=== PATIENT | female | born 1970 ===

== ENCOUNTER 2016-07-21 18:47 | Emergency (ER) | payer SELFPAY ==
[2016-07-21 19:02] VITALS: TEMP 97.2; O2SAT 100
[2016-07-21] MEDS ORDERED: Sodium Chloride 0.9% 1,000 ML IV STA (19:23)
--- NOTE | 2016-07-21 19:49 | ED PDOC ---
HPI: Hypertension/Hypotension Time Seen by Provider: 07/21/16 19:04 Chief Complaint (Nursing): High Blood Pressure Chief Complaint (Provider): High Blood Pressure History Per: Patient History/Exam Limitations: no limitations Onset/Duration Of Symptoms: Hrs (a few hours [employer]OCKST[employer]) Current Symptoms Are (Timing): Better Associated Symptoms: Dyspnea, Dizziness. denies: Chest Pain Severity: Moderate Additional Complaint(s): 46 year old female patient with a pertinent medical history of HTN presents to the ED with complaints of an elevated blood pressure that she noticed prior to arrival. 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 Her bending shed worker injected dye into her eye and she started to get shortness of breath and dizzy. She reports that she didn't take her BP medication after leaving her bending shed worker's office. She denies having chest pain. Her BP has started to resolve in the ED but her symptoms of shortness of breath and dizziness remain. PMD: Emely Benson Past Medical History Reviewed: Historical Data, Nursing Documentation, Vital Signs Vital Signs: Last Vital Signs Temp 97.2 F L 07/21/16 18:56 Pulse 78 07/21/16 18:56 Resp 18 07/21/16 18:56 BP 167/89 H 07/21/16 18:56 Pulse Ox 100 07/21/16 18:56 - Medical History PMH: Diabetes, HTN - Family History Family History: States: Unknown Family Hx - Social History Current smoker - smoking cessation education provided: No Alcohol: None Drugs: Denies - Immunization History Hx Tetanus Toxoid Vaccination: No Hx Influenza Vaccination: No Hx Pneumococcal Vaccination: No - Home Medications Home Medications: Ambulatory Orders Medication Instructions Recorded Patient Own Med [Patient Own Med] 1 tab PO DAILY 11/07/14 Aspirin [Ecotrin] 81 mg PO DAILY #0 tabec 11/08/14 Atorvastatin [Lipitor] 20 mg PO DAILY #0 tab 11/08/14 Lisinopril [Zestril] 10 mg PO DAILY #0 tab 11/08/14 Metoprolol Tartrate [Lopressor] 25 mg PO Q12 #0 tab 11/08/14 metFORMIN [glucOPHAGE] 500 mg PO BID #0 tab 11/08/14 Clindamycin [Cleocin] 300 mg PO BID #14 cap 11/22/15 Ibuprofen [Motrin] 600 mg PO Q6 #20 tab 11/22/15 oxyCODONE/Acetaminophen [Percocet 1 tab PO Q6 #10 tab 04/02/16 5/325 mg Tab] - Allergies Allergies/Adverse Reactions: Allergies Allergy/AdvReac Type Severity Reaction Status Date / Time No Known Allergies Allergy Verified 04/02/16 17:50 Review of Systems ROS Statement: Except As Marked, All Systems Reviewed And Found Negative Cardiovascular: Negative for: Chest Pain Respiratory: Positive for: Shortness of Breath Neurological: Positive for: Dizziness Physical Exam - Reviewed Nursing Documentation Reviewed: Yes Vital Signs Reviewed: Yes - Physical Exam Appears: Positive for: Well, Non-toxic, No Acute Distress Head Exam: Positive for: ATRAUMATIC, NORMOCEPHALIC Skin: Positive for: Normal Color, Warm, Dry Eye Exam: Positive for: Other (dilated pupils (from earlier procedure)) Cardiovascular/Chest: Positive for: Regular Rate, Rhythm, Chest Non Tender Respiratory: Positive for: Normal Breath Sounds. Negative for: Respiratory Distress Neurologic/Psych: Positive for: Alert, Oriented (3x) - Laboratory Results Result Diagrams: 07/21/16 19:47 07/21/16 19:47 - ECG O2 Sat by Pulse Oximetry: 100 (RA) Pulse Ox Interpretation: Normal Medical Decision Making Medical Decision Makin:04 Initial impression: 46 year old female patient with a reaction to injected dye. Initial plan: * BMP * troponin I * CBC with differential * IV NS 1,000ml IV 1,000mls/hr * reglan 10mg IVP once * threat monitoring analyst * reevaluation 2200 PT. is feeling much better, symptoms have resolved. Likely was experiencing a medication adverse reaction. Scribe Attestation: Documented by Christie Dietz, acting as a scribe for Blane Jolley MD. Provider Scribe Attestation: All medical record entries made by the Scribe were at my direction and personally dictated by me. I have reviewed the chart and agree that the record accurately reflects my personal performance of the history, physical exam, medical decision making, and the department course for this patient. I have also personally directed, reviewed, and agree with the discharge instructions and disposition. Disposition - Clinical Impression Clinical Impression: Hypertension - Disposition Referrals: [facility] [Outside] Disposition Time: 22:00 Condition: STABLE Instructions: Adverse Drug Reaction (ED), Hypertension (ED) Print Language: LIBYAN
[2016-07-21 20:32] LABS: BASO % 0.6 % (0.0-2.0); EOS # 0.1 K/uL (0.0-0.7); EOS % 1.2 % (0.0-4.0); HEMATOCRIT 42.1 % (34.0-47.0); LYMPH # 3.5 K/uL (1.0-4.3); LYMPH % 48.2 % (20.0-40.0); MEAN CELL VOLUME 96.9 fl (81.0-99.0); MEAN CORPUSCULAR HEMOGLOBIN 32.9 pg (27.0-31.0); MEAN PLATELET VOLUME 10.2 fl (7.2-11.7); MONO # 0.5 K/uL (0.0-0.8); MONO % 6.8 % (0.0-10.0); NEUT # 3.1 K/uL (1.8-7.0); NEUT % 43.2 % (50.0-75.0); NRBC % 0.1 % (0.0-0.0); RED CELL DISTRIBUTION WIDTH 13.3 % (11.5-14.5); WHITE BLOOD COUNT 7.2 K/uL (4.8-10.8)
[2016-07-21 20:42] VITALS: BP 158/82; PULSE 70; RESP 16
[2016-07-21 21:08] LABS: BLOOD UREA NITROGEN 13 mg/dl (7-17); CALCIUM 9.3 mg/dL (8.4-10.2); CARBON DIOXIDE 24 mmol/L (22-30); CHLORIDE 101 mmol/L (98-107); GFR AFRICAN-AMERICAN > 60; GLUCOSE,RANDOM 314 mg/dL (65-105); POTASSIUM 3.6 MMOL/L (3.6-5.0); SODIUM 132 mmol/l (132-148)
--- NOTE | 2016-07-22 13:19 | RAD ---
PROCEDURE: CHEST RADIOGRAPH, 1 VIEW HISTORY: Shortness of breath COMPARISON: 05/09/2012 FINDINGS: LUNGS: The lungs are clear. PLEURA: No pneumothorax or pleural fluid seen. CARDIOVASCULAR: Normal. OSSEOUS STRUCTURES: No significant abnormalities. VISUALIZED UPPER ABDOMEN: Normal. OTHER FINDINGS: None. IMPRESSION: No active pulmonary move disease.
== END 2016-07-21 22:09 | disposition home or self-care (01) ==
LOC: H.ER 18:47
DX: I10 Essential (primary) hypertension (principal); E11.9 Type 2 diabetes mellitus without complications; R42 Dizziness and giddiness; R06.02 Shortness of breath; Z79.84 Long term (current) use of oral hypoglycemic drugs

== ENCOUNTER 2017-05-04 18:08 | Observation (INO) | payer SELFPAY ==
[2017-05-04] MEDS ORDERED: Sodium Chloride 0.9% 500 ML IV STA (18:35)
--- NOTE | 2017-05-04 19:03 | ED PDOC ---
HPI: Chest Pain Time Seen by Provider: 05/04/17 18:29 Chief Complaint (Nursing): Chest Pain Chief Complaint (Provider): Chest Pain History Per: Patient, Family (son) History/Exam Limitations: no limitations Onset/Duration Of Symptoms: Days (x1) Current Symptoms Are (Timing): Still Present Additional Complaint(s): 47 year old female with previous medical history of diabetes, hypertension and hypercholesterolemia, who presents to the emergency department with a complaint of chest pain associated with shortness of breath, palpitations, anxiety and tingling sensation of lower extremities ongoing since 1529 today. Denied any nausea, vomiting, diarrhea, abdominal pain, suicidal or homicidal ideation. Son stated patient's blood pressure was high and symptoms began after receiving bad news earlier today. PMD: [facility] Past Medical History Reviewed: Historical Data, Nursing Documentation, Vital Signs Vital Signs: Last Vital Signs Temp 98.3 F 05/04/17 18:19 Pulse 87 05/04/17 18:19 Resp 18 05/04/17 18:19 BP 148/82 05/04/17 18:19 Pulse Ox 99 05/04/17 21:15 - Medical History PMH: Anxiety, Diabetes, HTN - Surgical History Surgical History: No Surg Hx - Family History Family History: States: Unknown Family Hx - Social History Current smoker - smoking cessation education provided: No Ex-Smoker (has not smoked in the last 12 months): No Alcohol: None Drugs: Denies - Immunization History Hx Tetanus Toxoid Vaccination: No Hx Influenza Vaccination: No Hx Pneumococcal Vaccination: No - Home Medications Home Medications: Ambulatory Orders Medication Instructions Recorded Patient Own Med [Patient Own Med] 1 tab PO DAILY 11/07/14 Aspirin [Ecotrin] 81 mg PO DAILY #0 tabec 11/08/14 Atorvastatin [Lipitor] 20 mg PO DAILY #0 tab 11/08/14 Lisinopril [Zestril] 10 mg PO DAILY #0 tab 11/08/14 Metoprolol Tartrate [Lopressor] 25 mg PO Q12 #0 tab 11/08/14 metFORMIN [glucOPHAGE] 500 mg PO BID #0 tab 11/08/14 Clindamycin [Cleocin] 300 mg PO BID #14 cap 11/22/15 Ibuprofen [Motrin] 600 mg PO Q6 #20 tab 11/22/15 oxyCODONE/Acetaminophen [Percocet 1 tab PO Q6 #10 tab 12/02/16 5/325 mg Tab] traMADol [Ultram] 50 mg PO Q8 #10 tab 02/25/17 valACYclovir [Valtrex] 1 gm PO Q8 #30 tab 02/25/17 - Allergies Allergies/Adverse Reactions: Allergies Allergy/AdvReac Type Severity Reaction Status Date / Time No Known Allergies Allergy Verified 05/04/17 18:18 Review of Systems ROS Statement: Except As Marked, All Systems Reviewed And Found Negative Cardiovascular: Positive for: Chest Pain, Palpitations Respiratory: Positive for: Shortness of Breath Gastrointestinal: Negative for: Nausea, Vomiting, Abdominal Pain, Diarrhea Musculoskeletal: Positive for: Neck Pain (right-sided), Other (lower extremities tingling sensation) Psych: Positive for: Anxiety. Negative for: Suicidal ideation (or homicidal ideation) Physical Exam - Reviewed Nursing Documentation Reviewed: Yes Vital Signs Reviewed: Yes - Physical Exam Appears: Positive for: Well, Non-toxic, No Acute Distress Eye Exam: Positive for: Normal appearance, EOMI, PERRL. Negative for: Nystagmus ENT: Positive for: Normal ENT Inspection, Pharynx Is (within normal limits). Negative for: Pharyngeal Erythema Neck: Positive for: Normal, Painless ROM, Supple. Negative for: Decreased ROM Cardiovascular/Chest: Positive for: Regular Rate, Rhythm, Chest Non Tender Respiratory: Positive for: Normal Breath Sounds. Negative for: Decreased Breath Sounds, Wheezing, Respiratory Distress Extremity: Positive for: Normal ROM (upper/lower), Capillary Refill (<2 seconds) . Negative for: Pedal Edema, Calf Tenderness Neurologic/Psych: Positive for: Alert (x3), Oriented - Laboratory Results Result Diagrams: 05/04/17 19:10 05/04/17 19:10 Interpretation Of Abn Labs: 3.4 k - ECG ECG: Positive for: Interpreted By Me, Viewed By Me O2 Sat by Pulse Oximetry: 99 (RA) Pulse Ox Interpretation: Normal - Radiology X-Ray: Interpreted by Me, Viewed By Me X-Ray Interpretation: No Acute Disease - Progress ED Course And Treament: 2144: Stable. AAOx3. Pain free. Spoke with Dr. Rich who will admit tele obs. Medical Decision Making Medical Decision Making: Initial Impression: Chest pain; Anxiety Initial Plan: * EKG * CMP * Troponin I * CBC * PTT * PT * CXR * Aspirin 325mg PO * NS 500ml IV per 100mls/hr ____ Time: 1910 --EKG: NSR ~ Scribe Attestation: Documented by Stephy Toure, acting as a scribe for Ganesh Boyce MD. Provider Scribe Attestation: All medical record entries made by the Scribe were at my direction and personally dictated by me. I have reviewed the chart and agree that the record accurately reflects my personal performance of the history, physical exam, medical decision making, and the department course for this patient. I have also personally directed, reviewed, and agree with the discharge instructions and disposition. Disposition - Clinical Impression Clinical Impression: Acute chest pain, Hypokalemia - Patient ED Disposition Is Patient to be Admitted: Yes Counseled Patient/Family Regarding: Studies Performed, Diagnosis - Disposition Disposition Time: 21:44 Condition: FAIR - Pt Status Changed To: Hospital Disposition Of: Observation - POA Present On Arrival: None Core Measure Indicators: Chest Pain
[2017-05-04 19:15] LABS: LYMPH % 41.5 % (20.0-40.0); MEAN CELL VOLUME 95.9 fl (81.0-99.0); MEAN CORPUSCULAR HEMOGLOBIN 32.8 pg (27.0-31.0); MEAN CORPUSCULAR HGB CONC 34.2 g/dL (33.0-37.0); MEAN PLATELET VOLUME 9.1 fl (7.2-11.7); NEUT % 49.3 % (50.0-75.0); RBC 3.97 Mil/uL (3.80-5.20); RED CELL DISTRIBUTION WIDTH 13.2 % (11.5-14.5); WHITE BLOOD COUNT 8.8 K/uL (4.8-10.8)
[2017-05-04 19:16] LABS: BASO # 0.1 K/uL (0.0-0.2); BASO % 0.6 % (0.0-2.0); EOS # 0.1 K/uL (0.0-0.7); EOS % 1.4 % (0.0-4.0); LYMPH # 3.6 K/uL (1.0-4.3); MONO # 0.6 K/uL (0.0-0.8); MONO % 7.2 % (0.0-10.0); NEUT # 4.3 K/uL (1.8-7.0); NRBC % 0.1 % (0.0-0.0)
[2017-05-04 19:35] LABS: ALB/GLOB RATIO 1.1 (1.0-2.1); ALT/SGPT 54 U/L (9-52); AST/SGOT 29 U/L (14-36); BLOOD UREA NITROGEN 11 mg/dl (7-17); CALCIUM 9.1 mg/dL (8.4-10.2); GFR AFRICAN-AMERICAN > 60; GFR NON-AFRICAN AMERICAN > 60
[2017-05-04 19:41] LABS: INR 1.1 (0.9-1.2); PARTIAL THROMBOPLASTIN TIME 30.2 Seconds (25.6-37.1)
[2017-05-04] MEDS ORDERED: Potassium Chloride 20 mEq ER Tab PO ONE ×2 (21:18→22:04)
--- NOTE | 2017-05-04 22:11 | CP.PCM.HP ---
History of Present Illness - History of Present Illness History of Present Illness: PCP: Emely Jaimes: [facility] Chief Complaint: left chest pain The patient was seen nd examined in the ED HPI: The Hx is obtained from the patient and her family. She is a 47 years old female with hx of Diabetes Mellitus and HTN who was last seen at the ED on 02/25/17with left mid back pain radiating anteriorly and to the epigastrium. She returns today with sudden unset of a sharp, burning pain at the epigastrium radiating laterally and to the mid left back following one dermatome. The pain began gradually but is increasing in intensity and worsens with palpation and with movement. It is associated with SOB and palpitation and anxiety. No nausea, vomits nor diaphoresis. 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 absent: Diplopia, Floaters, Sees Flashes Ears: absent: Decreased Hearing, Ear Discharge, Tinnitus Nose/Mouth/Throat: absent: Epistaxis, Nasal Congestion, Nasal Discharge, Sinus Pain, Sinus Pressure - Cardiovascular Cardiovascular: Chest Pain, Dyspnea, Palpitations. absent: Edema, Leg Edema - Respiratory Respiratory: Cough, Dyspnea, Pain on Inspiration. absent: Wheezing, Stridor - Gastrointestinal Gastrointestinal: Constipation, Nausea, Vomiting. absent: Diarrhea Additional comments: Epigastric pains - Genitourinary Genitourinary: absent: Dysuria, Flank Pain, Hematuria, Urinary Hesitance - Musculoskeletal Musculoskeletal: Back Pain Additional comments: Pain to both feet - Integumentary Integumentary: absent: Pruritus, Rash, Skin Ulcer, Sores, Striae, Swelling - Neurological Neurological: Burning Sensations, Tingling. absent: Confusion, Focal Weakness, Headaches - Psychiatric Psychiatric: Anxiety. absent: Depression, Panic Attacks - Endocrine Endocrine: absent: Palpitations, Polydipsia, Polyphagia, Polyuria - Hematologic/Lymphatic Hematologic: absent: Easy Bleeding, Easy Bruising Past Patient History - Infectious Disease Hx of Infectious Diseases: None - Past Medical History & Family History Past Medical History?: Yes - Past Social History Smoking Status: Never Smoked Chewing Tobacco Use: No Cigar Use: No Alcohol: None Drugs: Denies Home Situation {Lives}: With Family - CARDIAC Hx Hypercholesterolemia: Yes Hx Hypertension: Yes - PULMONARY Hx Respiratory Disorders: No - NEUROLOGICAL Hx Neurological Disorder: No - HEENT Hx HEENT Problems: No - RENAL Hx Chronic Kidney Disease: No - ENDOCRINE/METABOLIC Hx Diabetes Mellitus Type 2: Yes - INTEGUMENTARY Hx Dermatological Problems: No - MUSCULOSKELETAL/RHEUMATOLOGICAL Hx Falls: No - GASTROINTESTINAL Hx Gastrointestinal Disorders: No - GENITOURINARY/GYNECOLOGICAL Hx Genitourinary Disorders: No - PSYCHIATRIC Hx Anxiety: Yes Other/Comment: Surgery to the right eye for Hemorrhage in the eye. - SURGICAL HISTORY Hx Surgeries: Yes Other/Comment: Eye surgery - ANESTHESIA Hx Anesthesia: Yes Hx Anesthesia Reactions: No Meds Allergies/Adverse Reactions: Allergies Allergy/AdvReac Type Severity Reaction Status Date / Time No Known Allergies Allergy Verified 05/04/17 18:18 Physical Exam - Constitutional Appears: No Acute Distress - Head Exam Head Exam: ATRAUMATIC, NORMAL INSPECTION, NORMOCEPHALIC - Eye Exam Eye Exam: EOMI, Normal appearance Pupil Exam: NORMAL ACCOMODATION, PERRL - ENT Exam ENT Exam: Mucous Membranes Moist, Normal Exam, Normal External Ear Exam - Neck Exam Neck exam: Positive for: Full Rom, Normal Inspection. Negative for: Lymphadenopathy, Tenderness - Respiratory Exam Respiratory Exam: Clear to Auscultation Bilateral. absent: Rales, Rhonchi, Wheezes - Cardiovascular Exam Cardiovascular Exam: REGULAR RHYTHM, RRR, +S1. absent: Gallop, JVD - GI/Abdominal Exam GI & Abdominal Exam: Normal Bowel Sounds, Soft. absent: Mass, Organomegaly Additional comments: Soft, flat, Tender at the epigastrium and lower left ribcage to mid left back on palpation. - Rectal Exam Rectal Exam: Deferred - Extremities Exam Extremities exam: Positive for: full ROM, normal inspection. Negative for: calf tenderness, pedal edema - Back Exam Back exam: absent: rash noted Additional comments: Pain to the mid left back from spine radiating anteriorly and to the anterior lower chest wall, increasing on palpation and when the poatient rotates the trunk. - Neurological Exam Neurological exam: Alert, CN II-XII Intact, Oriented x3, Reflexes Normal - Psychiatric Exam Psychiatric exam: Normal Affect, Normal Mood - Skin Skin Exam: Dry, Intact, Normal Color, Warm Additional comments: No rash nor petechias Results - Vital Signs Recent Vital Signs: Last Vital Signs Temp 98.3 F 05/04/17 18:19 Pulse 87 05/04/17 18:19 Resp 18 05/04/17 18:19 BP 148/82 05/04/17 18:19 Pulse Ox 99 05/04/17 21:46 - Labs Result Diagrams: 05/04/17 19:10 05/04/17 19:10 Labs: Laboratory Results - last 24 hr 05/04/17 05/04/17 05/04/17 18:31 19:10 19:10 WBC 8.8 RBC 3.97 Hgb 13.0 Hct 38.1 MCV 95.9 D MCH 32.8 H MCHC 34.2 RDW 13.2 Plt Count 189 MPV 9.1 Neut % (Auto) 49.3 L Lymph % (Auto) 41.5 H [place] % (Auto) 7.2 Eos % (Auto) 1.4 Baso % (Auto) 0.6 Neut # 4.3 Lymph # 3.6 [place] # 0.6 Eos # 0.1 Baso # 0.1 PT INR APTT Sodium 139 Potassium 3.4 L Chloride 101 Carbon Dioxide 26 Anion Gap 15 BUN 11 Creatinine 0.4 L Est GFR ( Amer) > 60 Est GFR (Non-Af Amer) > 60 POC Glucose (mg/dL) 143 H Random Glucose 154 H Calcium 9.1 Total Bilirubin 0.3 AST 29 ALT 54 H D Alkaline Phosphatase 116 Troponin I 0.0240 Total Protein 7.4 Albumin 4.0 Globulin 3.5 Albumin/Globulin Ratio 1.1 05/04/17 19:10 WBC RBC Hgb Hct MCV MCH MCHC RDW Plt Count MPV Neut % (Auto) Lymph % (Auto) [place] % (Auto) Eos % (Auto) Baso % (Auto) Neut # Lymph # [place] # Eos # Baso # PT 12.0 INR 1.1 APTT 30.2 Sodium Potassium Chloride Carbon Dioxide Anion Gap BUN Creatinine Est GFR ( Amer) Est GFR (Non-Af Amer) POC Glucose (mg/dL) Random Glucose Calcium Total Bilirubin AST ALT Alkaline Phosphatase Troponin I Total Protein Albumin Globulin Albumin/Globulin Ratio - EKG Data EKG comments: NSR 87/min. No sign of ischemia - Imaging and Cardiology Chest x-ray Status: Image reviewed by me Additional comment: No infiltrate Assessment & Plan - Assessment and Plan (Free Text) Assessment: #. Left Epigastric and left back pain #. DM with Hyperglycemia #. HTN #. Hypokalemia Plan: 47 years old female with hx of Diabetes Mellitus and HTN who was last seen at the ED on 02/25/17 with left mid back pain radiating anteriorly and to the epigastrium. She returns today with sudden unset of a sharp, burning pain at the epigastrium radiating laterally and to the mid left back following the same dermatome. No nausea, vomits nor diaphoresis. #. Left Epigastric and left back pain most likely secondary to Herpes Zoster, r/ o ACS - Consult ID Dr David - Capsasin Cream apply to area of pain QID - Pain management - Serial Troponin - EKG - Lipid Panel #. DM with Hyperglycemia - Metformin - Regular insulin sliding scale according to Accucheck - HbA1c 11.8 on 03/19/17 #. HTN - Zestril - Follow Blood Pressures #. Hypokalemia - Repleted - KCL maintenance - Follow Electrolytes #. Stress Ulcer Prophylaxis with Pepcid #. DVT prophylaxis with Lovenox #. Code Status: Full - Date & Time Date: 05/04/17 Time: 22:10
[2017-05-05] MEDS: Potassium Chl 20 mEq in NS 1,000 ML IV SCH ×2 (00:49→12:06)
[2017-05-05 05:42] LABS: LDL CHOLESTEROL 93 mg/dL (0-129)
[2017-05-05 05:58] LABS: BLOOD UREA NITROGEN 6 mg/dl (7-17); CALCIUM 8.2 mg/dL (8.4-10.2); GFR AFRICAN-AMERICAN > 60; GFR NON-AFRICAN AMERICAN > 60; HDL CHOLESTEROL 35 MG/DL (30-70)
[2017-05-05] MEDS: Insulin Regular 100 units/ml SC SCH ×2 (08:08→12:10)
[2017-05-05] MEDS ORDERED: Enoxaparin 40 mg Syringe SC SCH (09:00)
--- NOTE | 2017-05-05 09:58 | CP.PCM.DIS ---
Provider - Provider Date of Admission: 05/04/17 21:45 Attending physician: Kyle Rich Time Spent in preparation of Discharge (in minutes): 20 Diagnosis - Discharge Diagnosis (1) Shingles Status: Acute Hospital Course - Lab Results Lab Results: Most Recent Lab Values WBC 8.8 K/uL (4.8-10.8) 05/04/17 19:10 RBC 3.97 Mil/uL (3.80-5.20) 05/04/17 19:10 Hgb 13.0 g/dL (12.0-16.0) 05/04/17 19:10 Hct 38.1 % (34.0-47.0) 05/04/17 19:10 MCV 95.9 fl (81.0-99.0) D 05/04/17 19:10 MCH 32.8 pg (27.0-31.0) H 05/04/17 19:10 MCHC 34.2 g/dL (33.0-37.0) 05/04/17 19:10 RDW 13.2 % (11.5-14.5) 05/04/17 19:10 Plt Count 189 K/uL (130-400) 05/04/17 19:10 MPV 9.1 fl (7.2-11.7) 05/04/17 19:10 Neut % (Auto) 49.3 % (50.0-75.0) L 05/04/17 19:10 Lymph % (Auto) 41.5 % (20.0-40.0) H 05/04/17 19:10 [place] % (Auto) 7.2 % (0.0-10.0) 05/04/17 19:10 Eos % (Auto) 1.4 % (0.0-4.0) 05/04/17 19:10 Baso % (Auto) 0.6 % (0.0-2.0) 05/04/17 19:10 Neut # 4.3 K/uL (1.8-7.0) 05/04/17 19:10 Lymph # 3.6 K/uL (1.0-4.3) 05/04/17 19:10 [place] # 0.6 K/uL (0.0-0.8) 05/04/17 19:10 Eos # 0.1 K/uL (0.0-0.7) 05/04/17 19:10 Baso # 0.1 K/uL (0.0-0.2) 05/04/17 19:10 PT 12.0 Seconds (9.8-13.1) 05/04/17 19:10 INR 1.1 (0.9-1.2) 05/04/17 19:10 APTT 30.2 Seconds (25.6-37.1) 05/04/17 19:10 Sodium 138 mmol/l (132-148) 05/05/17 05:00 Potassium 3.5 MMOL/L (3.6-5.0) L 05/05/17 05:00 Chloride 102 mmol/L (98-107) 05/05/17 05:00 Carbon Dioxide 29 mmol/L (22-30) 05/05/17 05:00 Anion Gap 11 (10-20) 05/05/17 05:00 BUN 6 mg/dl (7-17) L 05/05/17 05:00 Creatinine 0.4 mg/dl (0.7-1.2) L 05/05/17 05:00 Est GFR ( Amer) > 60 05/05/17 05:00 Est GFR (Non-Af Amer) > 60 05/05/17 05:00 POC Glucose (mg/dL) 90 mg/dL (65-110) 05/05/17 05:34 Random Glucose 109 mg/dL (65-105) H 05/05/17 05:00 Calcium 8.2 mg/dL (8.4-10.2) L 05/05/17 05:00 Total Bilirubin 0.3 mg/dl (0.2-1.3) 05/04/17 19:10 AST 29 U/L (14-36) 05/04/17 19:10 ALT 54 U/L (9-52) H D 05/04/17 19:10 Alkaline Phosphatase 116 U/L (38-126) 05/04/17 19:10 Troponin I 0.0150 ng/mL (0.00-0.120) 05/05/17 05:00 Total Protein 7.4 G/DL (6.3-8.2) 05/04/17 19:10 Albumin 4.0 g/dL (3.5-5.0) 05/04/17 19:10 Globulin 3.5 gm/dL (2.2-3.9) 05/04/17 19:10 Albumin/Globulin Ratio 1.1 (1.0-2.1) 05/04/17 19:10 Triglycerides 127 mg/DL (0-149) D 05/05/17 05:00 Cholesterol 139 mg/dL (0-199) 05/05/17 05:00 LDL Cholesterol Direct 93 mg/dL (0-129) 05/05/17 05:00 HDL Cholesterol 35 MG/DL (30-70) 05/05/17 05:00 - Hospital Course Hospital Course: 47 y/o female patient with PMHx of DM II; HTN; HLD; was admitted to the hospital for an onset of a sharp, burning pain at the epigastrium radiating laterally and to the mid left back following one dermatome. The pain began gradually but was increasing in intensity at the time of an admission. Patient was seen in the ED for similar symptoms on 02/25/17 with left mid back pain radiating anteriorly and to the epigastrium. During the hospital stay, her serial troponin levels were found to be normal. EKG showed no acute findings. Capsaicin cream showed improvement in her symptoms during the hospital stay. 1). 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 DM with Hyperglycemia - Metformin - HbA1c 11.8 on 03/19/17 3). HTN - Zestril - Follow Blood Pressures 4). HLD - Atorvastatin - Date & Time of H&P Date of H&P: 05/05/17 Time of H&P: 09:46 Discharge Exam - Head Exam Head Exam: ATRAUMATIC, NORMAL INSPECTION, NORMOCEPHALIC - Eye Exam Eye Exam: Normal appearance - ENT Exam ENT Exam: Normal Exam - Neck Exam Neck exam: Full Rom, Normal Inspection - Respiratory Exam Respiratory Exam: Clear to PA & Lateral, NORMAL BREATHING PATTERN, UNREMARKABLE - Cardiovascular Exam Cardiovascular Exam: REGULAR RHYTHM, +S1, +S2 - GI/Abdominal Exam GI & Abdominal Exam: Normal Bowel Sounds, Soft, Unremarkable - Rectal Exam Rectal Exam: Deferred - Extremities Exam Extremities exam: full ROM, normal capillary refill, normal inspection - Back Exam Back exam: FULL ROM, tenderness, vertebral tenderness - Neurological Exam Neurological exam: Alert, Oriented x3 - Psychiatric Exam Psychiatric exam: Normal Affect, Normal Mood - Skin Skin Exam: Intact, Normal Color, Warm Additional comments: Mild tenderness present radiating from epigastric region to posteriorly in a single dermatomal pattern. no skin breaks, vesicles or rashes appreciated Discharge Plan - Discharge Medications Prescriptions: Atorvastatin [Lipitor] 20 mg PO DAILY #30 tab Capsaicin [Trixaicin CREAM] 1 applic TOP QID PRN #1 tube PRN Reason: Other Famotidine [Pepcid] 20 mg PO DAILY #30 tab Gabapentin [Neurontin] 300 mg PO BID #60 cap Lisinopril [Zestril] 10 mg PO DAILY #30 tab metFORMIN [glucOPHAGE] 500 mg PO BID #60 tab - Follow Up Plan Condition: FAIR Disposition: HOME/ ROUTINE Instructions: Hypokalemia (DC) Referrals: [facility] [employer] [facility] [Outside]
--- NOTE | 2017-05-05 10:06 | RAD ---
HISTORY: dyspnea COMPARISON: 02/25/2017. FINDINGS: LUNGS: The lungs are clear. PLEURA: No significant pleural effusion identified, no pneumothorax apparent. CARDIOVASCULAR: Normal. OSSEOUS STRUCTURES: No significant abnormalities. VISUALIZED UPPER ABDOMEN: Normal. OTHER FINDINGS: None. IMPRESSION: No active pulmonary disease.
--- NOTE | 2017-05-05 10:39 | CARD ---
APPROVED REPORT EKG Measurement Heart [id number] MD [id number] <Conclusion> Normal sinus rhythm Normal ECG
[2017-05-05 12:01] VITALS: BP 121/76; PULSE 77; RESP 20; TEMP 97.5; O2SAT 95
== END 2017-05-05 12:50 | disposition home or self-care (01) ==
LOC: H.ER 18:08 → H.ERHOLD 21:45 → H.TEL 23:21
PROVIDERS: ADMIT Internal Medicine; ATTEND Internal Medicine
DX: R07.9 Chest pain, unspecified (principal); E11.65 Type 2 diabetes mellitus with hyperglycemia; E87.6 Hypokalemia; E78.5 Hyperlipidemia, unspecified; E78.00 Pure hypercholesterolemia, unspecified; I10 Essential (primary) hypertension; F41.9 Anxiety disorder, unspecified; M54.9 Dorsalgia, unspecified
CPT/HCPCS: 36415; 71045; 80048; 80053; 80061; 81025; 82948; 84484; 85025; 85610; 85730; 93005; 99285; G0378; J1650; J7040

== ENCOUNTER 2017-07-05 01:12 | Inpatient (IN) | payer SELFPAY ==
[2017-07-05] MEDS ORDERED: Sodium Chloride 0.9% 1,000 ML IV STA ×2 (01:40→10:24)
[2017-07-05 02:07] LABS: BASO # 0.1 K/uL (0.0-0.2); BASO % 0.8 % (0.0-2.0); EOS # 0.1 K/uL (0.0-0.7); EOS % 1.1 % (0.0-4.0); HEMOGLOBIN 13.9 g/dL (12.0-16.0); LYMPH # 3.6 K/uL (1.0-4.3); MEAN CELL VOLUME 96.1 fl (81.0-99.0); MEAN CORPUSCULAR HEMOGLOBIN 33.5 pg (27.0-31.0); MEAN CORPUSCULAR HGB CONC 34.9 g/dL (33.0-37.0); MEAN PLATELET VOLUME 9.6 fl (7.2-11.7); MONO # 0.6 K/uL (0.0-0.8); NEUT # 3.7 K/uL (1.8-7.0); NEUT % 46.1 % (50.0-75.0); NRBC % 0.1 % (0.0-0.0); RBC 4.14 Mil/uL (3.80-5.20); RED CELL DISTRIBUTION WIDTH 13.4 % (11.5-14.5); WHITE BLOOD COUNT 7.9 K/uL (4.8-10.8)
[2017-07-05] MEDS ORDERED: Morphine 4 MG/ML VIAL IVP ONE (02:21)
[2017-07-05 02:36] LABS: ALB/GLOB RATIO 1.1 (1.0-2.1); ALBUMIN 4.2 g/dL (3.5-5.0); ALT/SGPT 40 U/L (9-52); AST/SGOT 30 U/L (14-36); BLOOD UREA NITROGEN 13 mg/dl (7-17); CALCIUM 9.9 mg/dL (8.4-10.2); GFR AFRICAN-AMERICAN > 60; GFR NON-AFRICAN AMERICAN > 60; LIPASE 190 U/L (23-300)
[2017-07-05] MEDS ORDERED: Iohexol 240 (50 ml) PO ONE (02:49)
[2017-07-05] MEDS ORDERED: Morphine 4 MG/ML VIAL ONE (04:35)
[2017-07-05] MEDS ORDERED: Iohexol 240 (50 ml) ONE (04:36)
[2017-07-05] MEDS ORDERED: Morphine 4 MG/ML VIAL IVP STA (04:42)
--- NOTE | 2017-07-05 05:15 | ED PDOC ---
HPI: Abdomen Time Seen by Provider: 07/05/17 01:30 Chief Complaint (Nursing): Abdominal Pain Chief Complaint (Provider): Abdominal Pain History Per: Patient History/Exam Limitations: no limitations Onset/Duration Of Symptoms: Days (14 days ago) Current Symptoms Are (Timing): Still Present Location Of Pain/Discomfort: LUQ Additional Complaint(s): 47 yo female, accompanied by spouse, with a history of diabetes, presents to the ED complaining of left upper quadrant abdominal pain, onset of 14 days ago. Patient reports of watery diarrhea, nausea, and worsened abdominal pain over the past 3 days, prompting her ED visit, but denies any vomiting, fever, chills , or any urinary symptoms. Past Medical History Reviewed: Historical Data, Nursing Documentation, Vital Signs Vital Signs: Last Vital Signs Temp 97.8 F 07/05/17 01:27 Pulse 80 07/05/17 01:27 Resp 18 07/05/17 01:27 BP 174/85 H 07/05/17 01:27 Pulse Ox 99 07/05/17 05:19 - Medical History PMH: Anxiety, Diabetes, HTN, Hypercholesterolemia Denies: HIV, Chronic Kidney Disease - Surgical History Surgical History: No Surg Hx - Family History Family History: States: Unknown Family Hx - Living Arrangements Living Arrangements: With Family - Social History Current smoker - smoking cessation education provided: No Ex-Smoker (has not smoked in the last 12 months): No Alcohol: None Drugs: Denies - Immunization History Hx Tetanus Toxoid Vaccination: No Hx Influenza Vaccination: No Hx Pneumococcal Vaccination: No - Home Medications Home Medications: Ambulatory Orders Medication Instructions Recorded Glimepiride [amaRYL] 2 mg PO BID 05/04/17 MetFORMIN [glucoPHAGE] 1,000 mg PO BID 05/04/17 Aspirin [Ecotrin] 81 mg PO DAILY tabec 05/05/17 Atorvastatin [Lipitor] 20 mg PO DAILY #30 tab 05/05/17 Capsaicin [Trixaicin CREAM] 1 applic TOP QID PRN #1 tube 05/05/17 Famotidine [Pepcid] 20 mg PO DAILY #30 tab 05/05/17 Gabapentin [Neurontin] 300 mg PO BID #60 cap 05/05/17 Lisinopril [Zestril] 10 mg PO DAILY #30 tab 05/05/17 metFORMIN [glucOPHAGE] 500 mg PO BID #60 tab 05/05/17 - Allergies Allergies/Adverse Reactions: Allergies Allergy/AdvReac Type Severity Reaction Status Date / Time No Known Allergies Allergy Verified 05/04/17 18:18 Review of Systems ROS Statement: Except As Marked, All Systems Reviewed And Found Negative Constitutional: Negative for: Fever, Chills Gastrointestinal: Positive for: Nausea, Abdominal Pain, Diarrhea (watery). Negative for: Vomiting Genitourinary Female: Negative for: Dysuria, Frequency, Incontinence, Hematuria Physical Exam - Reviewed Nursing Documentation Reviewed: Yes Vital Signs Reviewed: Yes - Physical Exam Appears: Positive for: Well, Non-toxic, No Acute Distress Head Exam: Positive for: ATRAUMATIC, NORMAL INSPECTION, NORMOCEPHALIC Skin: Positive for: Normal Color, Warm, DRY Eye Exam: Positive for: EOMI, Normal appearance, PERRL ENT: Positive for: Normal ENT Inspection Neck: Positive for: Normal, Painless ROM Cardiovascular/Chest: Positive for: Regular Rate, Rhythm. Negative for: Murmur Respiratory: Positive for: Normal Breath Sounds. Negative for: Respiratory Distress Gastrointestinal/Abdominal: Positive for: Soft, Tenderness (left upper quadrant tenderness to palpation) Back: Positive for: Normal Inspection Extremity: Positive for: Normal ROM Neurologic/Psych: Positive for: Alert, Oriented - Laboratory Results Result Diagrams: 07/05/17 02:04 07/05/17 02:04 - ECG O2 Sat by Pulse Oximetry: 99 (RA) Pulse Ox Interpretation: Normal Medical Decision Making Medical Decision Making: Time: --01:39 Impression: --diverticulitis vs colitis vs kidney stone Plan: --CT ABD Pelvis PO and IV contrast --Iohexol 50ml PO --Toradol 30mg IVP --Morphine 4mg IVP x2 --IV fluids --Zofran 4mg IVP --Urinalysis Reassess [address] Sanchez pending crisis eval Scribe Attestation: Documented by Kasi Dolan acting as a scribe for Blane Jolley MD. Provider Attestation: All medical record entries made by the Scribe were at my direction and personally dictated by me. I have reviewed the chart and agree that the record accurately reflects my personal performance of the history, physical exam, medical decision making, and the department course for this patient. I have also personally directed, reviewed, and agree with the discharge instructions and disposition. Disposition - Clinical Impression Clinical Impression: Abdominal pain - Patient ED Disposition Is Patient to be Admitted: Transfer of Care - Disposition Disposition: Transfer of Care Disposition Time: 07:00 Condition: STABLE Forms: [employer] (Stateless) Patient Signed Over To: Chava Sanchez Handoff Comments: pending CT and reeval
[2017-07-05] MEDS ORDERED: Iohexol 300 100 ML IJ ONE (06:14)
[2017-07-05 06:56] LABS: SQUAMOUS EPITHIAL 3 /hpf (0-5); URINE BILIRUBIN NEGATIVE (NEGATIVE); URINE BLOOD NEGATIVE (NEGATIVE); URINE CLARITY SLIGHTY-CLOUDY (Clear); URINE COLOR YELLOW (YELLOW); URINE GLUCOSE (UA) >=500 mg/dL (Normal); URINE LEUKOCYTE ESTERASE NEG Leu/uL (Negative); URINE PROTEIN NEGATIVE (NEGATIVE); URINE UROBILINOGEN 0.2-1.0 mg/dL (0.2-1.0)
--- NOTE | 2017-07-05 07:16 | ED PDOC ---
- Laboratory Results Result Diagrams: 07/05/17 02:04 07/05/17 02:04 - ECG O2 Sat by Pulse Oximetry: 99 (RA) Pulse Ox Interpretation: Normal Medical Decision Making Medical Decision Making: Time: 7:10 Patient was signed out to me by DR. Jolley, pending CT abdomen. CT Abdomen: FINDINGS: Lower thorax: Bibasilar right mid lobe and lingular nonspecific infiltrates are present, consistent with atelectasis or pneumonia. Small hiatal hernia. ABDOMEN: Liver: Unremarkable. No mass. Gallbladder and bile ducts: Partially distended gallbladder with a large gallstone in the gallbladder fundus. There is gallbladder wall thickening and pericholecystic infiltration. Correlation with clinical data is recommended if acute on chronic cholecystitis is clinically suspected. Pancreas: Unremarkable. No mass. No ductal dilation. Spleen: Unremarkable. No splenomegaly. Adrenals: Unremarkable. No mass. Kidneys and ureters: Unremarkable. No solid mass. No hydronephrosis. Stomach and bowel: Diverticulosis. Large amount of stool in the colon. Correlation with patient's clinical history of constipation is recommended. No mucosal thickening. Appendix: Normal appendix. PELVIS: Bladder: Unremarkable. Reproductive: There is enhancing involuting left ovarian cyst measuring 2.6 x 1.8 cm. If clinically warranted, a pelvic ultrasound may be helpful for further assessment. There is IUD in the fundus of the uterus. ABDOMEN and PELVIS: Intraperitoneal space: Unremarkable. No free air. No significant fluid collection. Bones/joints: L5-S1 disc herniation No acute fracture. No dislocation. Soft tissues: Unremarkable. Vasculature: There is mild narrowing of celiac trunk seen on image 80 series 602. The aorta demonstrates calcified plaque and is mildly ectatic but normal in caliber. No abdominal aortic aneurysm. Lymph nodes: Unremarkable. No enlarged lymph nodes. IMPRESSION: 1. Partially distended gallbladder with a large gallstone in the gallbladder fundus. There is gallbladder wall thickening and pericholecystic infiltration. Correlation with clinical data is recommended if acute on chronic cholecystitis is clinically suspected. 2. There is enhancing involuting left ovarian cyst measuring 2.6 x 1.8 cm. If clinically warranted, a pelvic ultrasound may be helpful for further assessment. US Abdomen FINDINGS: LIVER: Measures 13.7 cm in length. Normal echogenicity of the liver parenchyma. No mass. No intrahepatic bile duct dilatation. GALLBLADDER: Extensive cholelithiasis distends gallbladder with trace cholecystic fluid noted. The wall does not appear grossly thickened however there is a positive sonographic Mukherjee sign and clinical correlation for cholecystitis is recommended. COMMON BILE DUCT: Measures 2.3 mm. No stones. No dilatation. PANCREAS: Not identified due to extensive overlying stomach or bowel gas. RIGHT KIDNEY: Measures 11.8 cm in length. Normal echogenicity. No calculus, mass, or hydronephrosis. AORTA: No aneurysmal dilatation. IVC: Unremarkable. OTHER FINDINGS: None . IMPRESSION: The gallbladder is distended with cholelithiasis and trace pericholecystic fluid is in question. Clinically correlate for potential cholecystitis in this patient with a positive sonographic Mukherjee sign. Normal CBD caliber. Pancreas completely obscured by overlying stomach or bowel gas. Time: 9:[address] Rosenberg and residential appraiser; patient diagnosed with acute cholecystitis. Dr Rosenberg will admit to her service. Disposition Counseled Patient/Family Regarding: Studies Performed, Diagnosis - Clinical Impression Clinical Impression: Abdominal pain, Acute calculous cholecystitis - POA Present On Arrival: None - Disposition Disposition: Admitted as In-Patient Disposition Time: 10:36 Condition: FAIR
--- NOTE | 2017-07-05 07:35 | CT ---
EXAM: CT Abdomen and Pelvis With Intravenous Contrast CLINICAL HISTORY: 47 years old, female; Pain; Abdominal pain; Flank; Left upper quadrant (luq); Additional info: Luq pain TECHNIQUE: Axial computed tomography images of the abdomen and pelvis with intravenous contrast. All CT scans at this facility use one or more dose reduction techniques, viz.: automated exposure control; ma/kV adjustment per patient size (including targeted exams where dose is matched to indication; i.e. head); or iterative reconstruction technique. 643 images are submitted. Oral contrast was administered. Coronal and sagittal reformatted images were created and reviewed. CONTRAST: 95 mL of omnipaque 300 administered intravenously. COMPARISON: No relevant prior studies available. FINDINGS: Lower thorax: Bibasilar right mid lobe and lingular nonspecific infiltrates are present, consistent with atelectasis or pneumonia. Small hiatal hernia. ABDOMEN: Liver: Unremarkable. No mass. Gallbladder and bile ducts: Partially distended gallbladder with a large gallstone in the gallbladder fundus. There is gallbladder wall thickening and pericholecystic infiltration. Correlation with clinical data is recommended if acute on chronic cholecystitis is clinically suspected. Pancreas: Unremarkable. No mass. No ductal dilation. Spleen: Unremarkable. No splenomegaly. Adrenals: Unremarkable. No mass. Kidneys and ureters: Unremarkable. No solid mass. No hydronephrosis. Stomach and bowel: Diverticulosis. Large amount of stool in the colon. Correlation with patient's clinical history of constipation is recommended. No mucosal thickening. Appendix: Normal appendix. PELVIS: Bladder: Unremarkable. Reproductive: There is enhancing involuting left ovarian cyst measuring 2.6 x 1.8 cm. If clinically warranted, a pelvic ultrasound may be helpful for further assessment. There is IUD in the fundus of the uterus. ABDOMEN and PELVIS: Intraperitoneal space: Unremarkable. No free air. No significant fluid collection. Bones/joints: L5-S1 disc herniation No acute fracture. No dislocation. Soft tissues: Unremarkable. Vasculature: There is mild narrowing of celiac trunk seen on image 80 series 602. The aorta demonstrates calcified plaque and is mildly ectatic but normal in caliber. No abdominal aortic aneurysm. Lymph nodes: Unremarkable. No enlarged lymph nodes. IMPRESSION: 1. Partially distended gallbladder with a large gallstone in the gallbladder fundus. There is gallbladder wall thickening and pericholecystic infiltration. Correlation with clinical data is recommended if acute on chronic cholecystitis is clinically suspected. 2. There is enhancing involuting left ovarian cyst measuring 2.6 x 1.8 cm. If clinically warranted, a pelvic ultrasound may be helpful for further assessment.
--- NOTE | 2017-07-05 10:07 | US ---
HISTORY: LUQ pain CT abdomen possibel edson COMPARISON: None. TECHNIQUE: Sonographic evaluation of the right upper quadrant of the abdomen. FINDINGS: LIVER: Measures 13.7 cm in length. Normal echogenicity of the liver parenchyma. No mass. No intrahepatic bile duct dilatation. GALLBLADDER: Extensive cholelithiasis distends gallbladder with trace cholecystic fluid noted. The wall does not appear grossly thickened however there is a positive sonographic Mukherjee sign and clinical correlation for cholecystitis is recommended. COMMON BILE DUCT: Measures 2.3 mm. No stones. No dilatation. PANCREAS: Not identified due to extensive overlying stomach or bowel gas. RIGHT KIDNEY: Measures 11.8 cm in length. Normal echogenicity. No calculus, mass, or hydronephrosis. AORTA: No aneurysmal dilatation. IVC: Unremarkable. OTHER FINDINGS: None . IMPRESSION: The gallbladder is distended with cholelithiasis and trace pericholecystic fluid is in question. Clinically correlate for potential cholecystitis in this patient with a positive sonographic Mukherjee sign. Normal CBD caliber. Pancreas completely obscured by overlying stomach or bowel gas.
[2017-07-05] MEDS ORDERED: Piperacillin/Tazobact 3.375 GM in Sodium Chloride 0.9% 100 ML IVPB STA (10:24)
--- NOTE | 2017-07-05 10:53 | CP.PCM.HP ---
History of Present Illness - History of Present Illness History of Present Illness: H&P FOR DR CHET 47F presents to hospital with epigastric pain that she states began 4 weeks ago. Pain has been on and off but yesterday it grew in intensity causing her to come to hospital. She states the pain is associated with food, especially fatty/ oily food. She admits to feels nauseous and having a bout of emesis yesterday. She also reports a three day history of diarrhea. She denies fevers and chills. PMH: DM, HTN, HLD PSH: Denies Social: denies tobacco, alcohol and illicit drugs Allergies: NKDA Present on Admission - Present on Admission Any Indicators Present on Admission: Yes History of Uncontrolled Diabetes: Yes Past Patient History - Infectious Disease Hx of Infectious Diseases: None - Past Medical History & Family History Past Medical History?: Yes - Past Social History Smoking Status: Never Smoked - CARDIAC Hx Hypercholesterolemia: Yes Hx Hypertension: Yes - PULMONARY Hx Respiratory Disorders: No - NEUROLOGICAL Hx Neurological Disorder: No - HEENT Hx HEENT Problems: No - RENAL Hx Chronic Kidney Disease: No - ENDOCRINE/METABOLIC Hx Endocrine Disorders: Yes Hx Diabetes Mellitus Type 2: Yes - HEMATOLOGICAL/ONCOLOGICAL Hx Human Immunodeficiency Virus (HIV): No - INTEGUMENTARY Hx Dermatological Problems: No - MUSCULOSKELETAL/RHEUMATOLOGICAL Hx Musculoskeletal Disorders: No Hx Falls: No - GASTROINTESTINAL Hx Gastrointestinal Disorders: No - GENITOURINARY/GYNECOLOGICAL Hx Genitourinary Disorders: No - PSYCHIATRIC Hx Anxiety: Yes Hx Substance Use: No - SURGICAL HISTORY Hx Surgeries: Yes Hx Eye Surgery: Yes Other/Comment: Eye surgery - ANESTHESIA Hx Anesthesia: Yes Hx Anesthesia Reactions: No Meds Allergies/Adverse Reactions: Allergies Allergy/AdvReac Type Severity Reaction Status Date / Time No Known Allergies Allergy Verified 05/04/17 18:18 Physical Exam - Constitutional Additional comments: Very comfortable, teary-eyed - Head Exam Head Exam: ATRAUMATIC - Eye Exam Eye Exam: EOMI, PERRL - ENT Exam ENT Exam: Mucous Membranes Moist - Respiratory Exam Respiratory Exam: Clear to Auscultation Bilateral, NORMAL BREATHING PATTERN - Cardiovascular Exam Cardiovascular Exam: REGULAR RHYTHM, +S1, +S2 - GI/Abdominal Exam GI & Abdominal Exam: Soft, Tenderness (moderate to severely tender in RUQ/LUQ, positive murphys sign). absent: Distended, Firm, Guarding, Rebound, Rigid - Neurological Exam Neurological exam: Alert, Oriented x3 - Psychiatric Exam Additional comments: tearful- due to pain - Skin Skin Exam: Dry, Intact, Normal Color, Warm Results - Vital Signs Recent Vital Signs: Last Vital Signs Temp 97.8 F 07/05/17 01:27 Pulse 80 07/05/17 01:27 Resp 18 07/05/17 01:27 BP 174/85 H 07/05/17 01:27 Pulse Ox 99 07/05/17 10:29 - Labs Result Diagrams: 07/05/17 02:04 07/05/17 02:04 Labs: Laboratory Results - last 24 hr 07/05/17 07/05/17 07/05/17 02:04 02:04 06:28 WBC 7.9 RBC 4.14 Hgb 13.9 Hct 39.8 MCV 96.1 MCH 33.5 H MCHC 34.9 RDW 13.4 Plt Count 192 MPV 9.6 Neut % (Auto) 46.1 L Lymph % (Auto) 45.0 H [place] % (Auto) 7.0 Eos % (Auto) 1.1 Baso % (Auto) 0.8 Neut # (Auto) 3.7 Lymph # (Auto) 3.6 [place] # (Auto) 0.6 Eos # (Auto) 0.1 Baso # (Auto) 0.1 Sodium 138 Potassium 3.9 Chloride 100 Carbon Dioxide 27 Anion Gap 15 BUN 13 Creatinine 0.4 L Est GFR ( Amer) > 60 Est GFR (Non-Af Amer) > 60 Random Glucose 308 H Calcium 9.9 Total Bilirubin 0.6 AST 30 ALT 40 Alkaline Phosphatase 155 H D Total Protein 8.0 Albumin 4.2 Globulin 3.9 Albumin/Globulin Ratio 1.1 Lipase 190 Urine Color Yellow Urine Clarity Slighty-cloudy Urine pH 6.0 Ur Specific [place] 1.036 H Urine Protein Negative Urine Glucose (UA) >=500 Urine Ketones Trace Urine Blood Negative Urine Nitrate Negative Urine Bilirubin Negative Urine Urobilinogen 0.2-1.0 Ur Leukocyte Esterase Neg Urine RBC (Auto) 3 Urine Microscopic WBC 1 Ur Squamous Epith Cells 3 Assessment & Plan - Assessment and Plan (Free Text) Assessment: 47F with abdominal pain likely 2/[address]: Partially distended GB, large stone, GBW thickening, pericholecystic fluid, left involuted ovarian cyst US: GB distended, GB stone, trace fluid, positive murphys sign Plan: - Admit to service - Pain control, Abx - Fluid resuscitation - Consented and scheduled for OR Discussed with Dr. Chet Davis, PGY2
[2017-07-05] MEDS ORDERED: HYDROmorphone 1 mg/ml ISec IVP PRN (11:01)
[2017-07-05] MEDS ORDERED: Sodium Chloride 0.9% 1,000 ML IV SCH (11:15)
[2017-07-05] MEDS ORDERED: Propofol 10 mg/ml Inj (20 ML) ONE (11:45)
[2017-07-05 11:46] LABS: INR 1.1 (0.9-1.2); PARTIAL THROMBOPLASTIN TIME 31.8 Seconds (25.6-37.1); PROTHROMBIN TIME 11.8 Seconds (9.8-13.1)
[2017-07-05] MEDS ORDERED: Rocuronium 10 mg/ml (5 ml) ONE (11:46)
[2017-07-05] MEDS ORDERED: Lidocaine 4% (Laryng-O-Jet) Kit MM ONE (11:46)
[2017-07-05] MEDS ORDERED: Midazolam 2 MG/2 ML VIAL ONE (11:46)
[2017-07-05] MEDS ORDERED: Succinylcholine 200 mg/10 ml Inj IV ONE (11:46)
[2017-07-05] MEDS ORDERED: Lactated Ringer's 1,000 ML IV ONE ×2 (12:00→13:10)
[2017-07-05] MEDS ORDERED: Neostigmine 1:1000 (1 mg/ml) Inj ONE (12:07)
[2017-07-05] MEDS ORDERED: Piperacillin/Tazobact 3.375 gm Inj IVPB ONE (12:15)
[2017-07-05] MEDS ORDERED: ePHEDrine 50 mg/ml Inj ONE (12:43)
[2017-07-05] MEDS ORDERED: Dexamethasone 4 mg/1 ml ONE ×2 (12:47→13:32)
[2017-07-05] MEDS ORDERED: HYDROmorphone 0.5 mg/0.5 ml ISec IVP PRN (14:08)
--- NOTE | 2017-07-05 14:12 | PCM.SURG1 ---
Surgeon's Initial Post Op Note - Surgeon's Notes Surgeon: Chet Per Diem Rn: RHODA Davis, WING Butt Pre-Operative Diagnosis: Acute cholecystitis Operative Findings: Inflamed gallbladder, gallstones Post-Operative Diagnosis: Acute cholecystitis Operation Performed: Laparoscopic cholecystectomy Specimen/Specimens Removed: Gallbladder Estimated Blood Loss: EBL {In ML}: 20 Date of Surgery/Procedure: 07/05/17 Time of Surgery/Procedure: 12:30
[2017-07-05] MEDS ORDERED: Dextrose 50% SYRINGE Inj (50 ml) IV PRN (15:06)
[2017-07-05] MEDS ORDERED: Glucagon Recombinant 1 mg Inj IM PRN (15:06)
[2017-07-05 16:34] VITALS: RESP 20
[2017-07-05] MEDS: Insulin Regular 100 units/ml SC SCH ×2 (18:08→22:32)
[2017-07-05] MEDS: Lactated Ringer's 1,000 ML IV SCH (21:18)
[2017-07-06] MEDS: Lactated Ringer's 1,000 ML IV SCH (07:00)
--- NOTE | 2017-07-06 07:46 | CP.PCM.DIS ---
Provider - Provider Date of Admission: 07/05/17 10:36 Attending physician: Geraldo Rosenberg MD Time Spent in preparation of Discharge (in minutes): 40 Hospital Course - Lab Results Lab Results: Most Recent Lab Values WBC 7.9 K/uL (4.8-10.8) 07/05/17 02:04 RBC 4.14 Mil/uL (3.80-5.20) 07/05/17 02:04 Hgb 13.9 g/dL (12.0-16.0) 07/05/17 02:04 Hct 39.8 % (34.0-47.0) 07/05/17 02:04 MCV 96.1 fl (81.0-99.0) 07/05/17 02:04 MCH 33.5 pg (27.0-31.0) H 07/05/17 02:04 MCHC 34.9 g/dL (33.0-37.0) 07/05/17 02:04 RDW 13.4 % (11.5-14.5) 07/05/17 02:04 Plt Count 192 K/uL (130-400) 07/05/17 02:04 MPV 9.6 fl (7.2-11.7) 07/05/17 02:04 Neut % (Auto) 46.1 % (50.0-75.0) L 07/05/17 02:04 Lymph % (Auto) 45.0 % (20.0-40.0) H 07/05/17 02:04 [place] % (Auto) 7.0 % (0.0-10.0) 07/05/17 02:04 Eos % (Auto) 1.1 % (0.0-4.0) 07/05/17 02:04 Baso % (Auto) 0.8 % (0.0-2.0) 07/05/17 02:04 Neut # (Auto) 3.7 K/uL (1.8-7.0) 07/05/17 02:04 Lymph # (Auto) 3.6 K/uL (1.0-4.3) 07/05/17 02:04 [place] # (Auto) 0.6 K/uL (0.0-0.8) 07/05/17 02:04 Eos # (Auto) 0.1 K/uL (0.0-0.7) 07/05/17 02:04 Baso # (Auto) 0.1 K/uL (0.0-0.2) 07/05/17 02:04 PT 11.8 Seconds (9.8-13.1) 07/05/17 11:26 INR 1.1 (0.9-1.2) 07/05/17 11:26 APTT 31.8 Seconds (25.6-37.1) 07/05/17 11:26 Sodium 138 mmol/l (132-148) 07/05/17 02:04 Potassium 3.9 MMOL/L (3.6-5.0) 07/05/17 02:04 Chloride 100 mmol/L (98-107) 07/05/17 02:04 Carbon Dioxide 27 mmol/L (22-30) 07/05/17 02:04 Anion Gap 15 (10-20) 07/05/17 02:04 BUN 13 mg/dl (7-17) 07/05/17 02:04 Creatinine 0.4 mg/dl (0.7-1.2) L 07/05/17 02:04 Est GFR ( Amer) > 60 07/05/17 02:04 Est GFR (Non-Af Amer) > 60 07/05/17 02:04 POC Glucose (mg/dL) 197 mg/dL (65-110) H 07/06/17 05:44 Random Glucose 308 mg/dL (65-105) H 07/05/17 02:04 Calcium 9.9 mg/dL (8.4-10.2) 07/05/17 02:04 Total Bilirubin 0.6 mg/dl (0.2-1.3) 07/05/17 02:04 AST 30 U/L (14-36) 07/05/17 02:04 ALT 40 U/L (9-52) 07/05/17 02:04 Alkaline Phosphatase 155 U/L (38-126) H D 07/05/17 02:04 Total Protein 8.0 G/DL (6.3-8.2) 07/05/17 02:04 Albumin 4.2 g/dL (3.5-5.0) 07/05/17 02:04 Globulin 3.9 gm/dL (2.2-3.9) 07/05/17 02:04 Albumin/Globulin Ratio 1.1 (1.0-2.1) 07/05/17 02:04 Lipase 190 U/L (23-300) 07/05/17 02:04 Urine Color Yellow (YELLOW) 07/05/17 06:28 Urine Clarity Slighty-cloudy (Clear) 07/05/17 06:28 Urine pH 6.0 (5.0-8.0) 07/05/17 06:28 Ur Specific [place] 1.036 (1.003-1.030) H 07/05/17 06:28 Urine Protein Negative mg/dL (NEGATIVE) 07/05/17 06:28 Urine Glucose (UA) >=500 mg/dL (Normal) 07/05/17:28 Urine Ketones Trace mg/dL (NEGATIVE) 07/05/17 06:28 Urine Blood Negative (NEGATIVE) 07/05/17 06:28 Urine Nitrate Negative (NEGATIVE) 07/05/17:28 Urine Bilirubin Negative (NEGATIVE) 07/05/17 06:28 Urine Urobilinogen 0.2-1.0 mg/dL (0.2-1.0) 07/05/17 06:28 Ur Leukocyte Esterase Neg Hien/uL (Negative) 07/05/17 06:28 Urine RBC (Auto) 3 /hpf (0-3) 07/05/17 06:28 Urine Microscopic WBC 1 /hpf (0-5) 07/05/17 06:28 Ur Squamous Epith Cells 3 /hpf (0-5) 07/05/17 06:28 - Hospital Course Hospital Course: 47F presents to hospital with epigastric pain that she states began 4 weeks ago. Pain has been on and off but yesterday it grew in intensity causing her to come to hospital. She states the pain is associated with food, especially fatty/ oily food. She admits to feels nauseous and having a bout of emesis yesterday. She also reports a three day history of diarrhea. She denies fevers and chills. PMH: DM, HTN, HLD PSH: Denies Social: denies tobacco, alcohol and illicit drugs Allergies: NKDA 47F with abdominal pain likely 2/[address]: Partially distended GB, large stone, GBW thickening, pericholecystic fluid, left involuted ovarian cyst US: GB distended, GB stone, trace fluid, positive murphys sign Patient underwent a laparoscopic cholecystectomy on 07/05/17 Patient tolerated procedure well. Post op care was uneventful. Pain controlled. Tolerating diet. Patient ready to be discharged. Discharge Exam - Head Exam Head Exam: ATRAUMATIC - Respiratory Exam Respiratory Exam: Clear to PA & Lateral, NORMAL BREATHING PATTERN - Cardiovascular Exam Cardiovascular Exam: REGULAR RHYTHM, +S1, +S2 - GI/Abdominal Exam GI & Abdominal Exam: Soft, Tenderness (mildly tender to palpation). absent: Distended, Firm, Guarding, Rebound, Rigid Additional comments: incisions are clean dry intact - Neurological Exam Neurological exam: Alert, Oriented x3 - Psychiatric Exam Psychiatric exam: Normal Affect, Normal Mood - Skin Skin Exam: Dry, Intact, Normal Color, Warm Discharge Plan - Follow Up Plan Condition: FAIR Disposition: HOME/ ROUTINE
[2017-07-06 07:53] LABS: BASO % 0.1 % (0.0-2.0); EOS % 0.3 % (0.0-4.0); HEMOGLOBIN 11.7 g/dL (12.0-16.0); LYMPH # 1.9 K/uL (1.0-4.3); LYMPH % 21.8 % (20.0-40.0); MEAN CELL VOLUME 96.7 fl (81.0-99.0); MEAN CORPUSCULAR HEMOGLOBIN 34.1 pg (27.0-31.0); MEAN CORPUSCULAR HGB CONC 35.2 g/dL (33.0-37.0); MONO # 0.6 K/uL (0.0-0.8); MONO % 7.3 % (0.0-10.0); NEUT # 6.1 K/uL (1.8-7.0); NEUT % 70.5 % (50.0-75.0); NRBC % 0.1 % (0.0-0.0); RBC 3.43 Mil/uL (3.80-5.20); RED CELL DISTRIBUTION WIDTH 13.3 % (11.5-14.5); WHITE BLOOD COUNT 8.6 K/uL (4.8-10.8)
[2017-07-06 08:10] VITALS: BP 116/71; PULSE 71; TEMP 99.3; O2SAT 96
[2017-07-06 08:10] LABS: ALBUMIN 3.1 g/dL (3.5-5.0); ALT/SGPT 78 U/L (9-52); AST/SGOT 82 U/L (14-36); BLOOD UREA NITROGEN 7 mg/dl (7-17); CALCIUM 7.9 mg/dL (8.4-10.2); GFR AFRICAN-AMERICAN > 60; GFR NON-AFRICAN AMERICAN > 60
[2017-07-06] MEDS: Insulin Regular 100 units/ml SC SCH ×2 (08:25→11:06)
[2017-07-06] MEDS ORDERED: Oxycodone/Acetaminophen 5/325 mg Tab PO PRN (11:03)
--- NOTE | 2017-07-07 15:19 | OP ---
PROCEDURE DATE: 07/05/2017 SURGEON: Geraldo Rosenberg MD [employer] OPERATOR: Susan. ANESTHESIA: General. PREOPERATIVE DIAGNOSIS: Acute cholecystitis. POSTOPERATIVE DIAGNOSIS: Acute cholecystitis. PROCEDURE: Laparoscopic cholecystectomy. DESCRIPTION OF OPERATION: With the patient in the supine position under adequate general anesthesia, the abdomen was prepped and draped in the usual sterile manner. Veress needle puncture was performed at the umbilicus with insufflation to 15 cm water pressure of CO2 and a 10-mm laparoscopic trocar was inserted via an infraumbilical incision. Under direct vision, additional trocars were inserted in the epigastrium and right costal margin. The gallbladder was visualized. There was noted to be marked adhesion of the omentum to the liver edge adjacent to and surrounding the gallbladder and this was taken down sharply and with cautery to visualize the gallbladder. The gallbladder was softly distended, but with adherence of the area of the pylorus and omentum consistent with recent inflammation. The gallbladder fundus was grasped and elevated and the infundibular area was exposed gently taking down the adhesions. There was noted to be a moderately large stone impacted in the body of the gallbladder just above the area of the infundibulum. The infundibulum was grasped and retracted laterally and the cystic duct was identified. The cystic duct was cleared down towards the common bile duct and the cystic duct was then triply clipped and divided. The cystic artery was similarly identified and dissected and the cystic artery was triply clipped and divided. The gallbladder was dissected free of the liver bed using electrocautery. Thickening of the liver bed was noted consistent with acute inflammation. The liver bed was inspected for hemostasis and the dissection was completed. The gallbladder was placed in a specimen retrieval bag and removed via the umbilical port site. The right upper quadrant was irrigated and suctioned. The pneumoperitoneum was released and the trocars were removed. The umbilical port site was closed with [id number] fascial sutures of 0 Vicryl. All incisions were closed with 4-0 Monocryl subcuticular sutures and Steri-Strips. Dry sterile dressings were applied. The patient tolerated the procedure well and transferred to the recovery room in stable condition. Estimated blood loss for the procedure was 20 mL. Geraldo Rosenberg MD [facility] # [id number] MARV[place]
== END 2017-07-06 12:32 | disposition home or self-care (01) | DRG 494 ==
LOC: H.ER 01:12 → H.ERHOLD 10:36 → H.MEDSURG1 15:22
PROVIDERS: ADMIT Specialist; ATTEND Specialist
PROC: 0FT44ZZ Resection of Gallbladder, Percutaneous Endoscopic Approach (ICD-10-PCS; principal; 2017-07-05 12:00)
DX: K80.00 Calculus of gallbladder with acute cholecystitis without obstruction (principal); E11.9 Type 2 diabetes mellitus without complications; F41.9 Anxiety disorder, unspecified; I10 Essential (primary) hypertension; E78.00 Pure hypercholesterolemia, unspecified; N83.202 Unspecified ovarian cyst, left side; E78.5 Hyperlipidemia, unspecified

== ENCOUNTER 2018-03-05 08:49 | Emergency (ER) | payer SELFPAY ==
[2018-03-05 09:22] VITALS: BP 96/64; PULSE 86; RESP 16; TEMP 97.1; O2SAT 98
[2018-03-05] MEDS ORDERED: Sodium Chloride 0.9% 1,000 ML IV STA (09:29)
[2018-03-05 09:45] LABS: BASO % 0.5 % (0.0-2.0); EOS # 0.2 K/uL (0.0-0.7); EOS % 2.1 % (0.0-4.0); HEMOGLOBIN 14.9 g/dL (12.0-16.0); LYMPH % 22.6 % (20.0-40.0); MEAN CELL VOLUME 97.9 fl (81.0-99.0); MEAN CORPUSCULAR HEMOGLOBIN 33.5 pg (27.0-31.0); MEAN CORPUSCULAR HGB CONC 34.2 g/dL (33.0-37.0); MEAN PLATELET VOLUME 9.1 fl (7.2-11.7); MONO # 0.6 K/uL (0.0-0.8); MONO % 7.1 % (0.0-10.0); NEUT % 67.7 % (50.0-75.0); RBC 4.44 Mil/uL (3.80-5.20); RED CELL DISTRIBUTION WIDTH 13.1 % (11.5-14.5); WHITE BLOOD COUNT 8.9 K/uL (4.8-10.8)
--- NOTE | 2018-03-05 09:45 | ED PDOC ---
HPI: Abdomen Time Seen by Provider: 03/05/18 09:20 Chief Complaint (Nursing): Abdominal Pain Chief Complaint (Provider): Abdominal Pain History Per: Patient History/Exam Limitations: no limitations Onset/Duration Of Symptoms: Days (x2) Current Symptoms Are (Timing): Still Present Associated Symptoms: Nausea, Vomiting Additional Complaint(s): 48 year old female presents to the ED complaining of abdominal pain associated with nausea and diarrhea for 2 days. Denies vomiting, fever, bloody stool. PMD: [facility] Past Medical History Reviewed: Historical Data, Nursing Documentation, Vital Signs Vital Signs: Last Vital Signs Temp 97.1 F L 03/05/18 09:20 Pulse 86 03/05/18 09:20 Resp 16 03/05/18 09:20 BP 96/64 L 03/05/18 09:20 Pulse Ox 98 03/05/18 09:20 - Medical History PMH: Anxiety, Depression, Diabetes, HTN, Hypercholesterolemia Denies: HIV, Chronic Kidney Disease - Surgical History Surgical History: No Surg Hx - Family History Family History: States: Unknown Family Hx - Immunization History Hx Tetanus Toxoid Vaccination: No Hx Influenza Vaccination: No Hx Pneumococcal Vaccination: No - Home Medications Home Medications: Ambulatory Orders Medication Instructions Recorded Gabapentin [Neurontin] 300 mg PO Q12 07/05/17 Glimepiride [amaRYL] 2 mg PO BID 07/05/17 Lisinopril [Zestril] 10 mg PO DAILY 07/05/17 MetFORMIN [glucoPHAGE] 1,000 mg PO BID 07/05/17 SITagliptin [Januvia] 100 mg PO DAILY 07/05/17 oxyCODONE/Acetaminophen [Percocet 1 ea PO Q6 PRN #10 tab 07/06/17 5/325 mg Tab] Atropine/Diphenoxylate [Lonox 1 tab PO Q8 #10 tab 03/05/18 0.025 MG-2.5 MG] - Allergies Allergies/Adverse Reactions: Allergies Allergy/AdvReac Type Severity Reaction Status Date / Time No Known Allergies Allergy Verified 05/04/17 18:18 Review of Systems ROS Statement: Except As Marked, All Systems Reviewed And Found Negative Constitutional: Negative for: Fever Gastrointestinal: Positive for: Nausea, Abdominal Pain, Diarrhea. Negative for: Vomiting, Hematochezia Physical Exam - Reviewed Nursing Documentation Reviewed: Yes Vital Signs Reviewed: Yes - Physical Exam Appears: Positive for: Non-toxic, No Acute Distress Head Exam: Positive for: ATRAUMATIC, NORMOCEPHALIC Skin: Positive for: Normal Color, Warm, Dry Eye Exam: Positive for: Normal appearance ENT: Positive for: Other (mucous membranes dry) Cardiovascular/Chest: Positive for: Regular Rate, Rhythm Respiratory: Positive for: Normal Breath Sounds. Negative for: Wheezing, Respiratory Distress Gastrointestinal/Abdominal: Positive for: Tenderness (mild diffuse tenderness ). Negative for: Guarding, Rebound Back: Positive for: Normal Inspection. Negative for: L CVA Tenderness, R CVA Tenderness Extremity: Positive for: Normal ROM. Negative for: Tenderness Neurologic/Psych: Positive for: Alert, Oriented. Negative for: Motor/Sensory Deficits - Laboratory Results Result Diagrams: 03/05/18 09:25 03/05/18 09:25 - ECG O2 Sat by Pulse Oximetry: 98 (RA) Pulse Ox Interpretation: Normal - Progress Re-evaluation Time: 15:38 Condition: Improved (Tolerated PO fluids. No abd pain) Medical Decision Making Medical Decision Making: Initial Impression: Abdominal pain Initial Plan: --CMP --ED urine dipstick --ED urine --CBC --Glucose --Sodium chloride 1000mL IV --Pepcid 20mg IV --Zofran 4mg IV Scribe Attestation: Documented by Vinod Rodriguez acting as a scribe for Christophe Galeano MD. Provider Scribe Attestation: All medical record entries made by the Scribe were at my direction and personally dictated by me. I have reviewed the chart and agree that the record accurately reflects my personal performance of the history, physical exam, medical decision making, and the department course for this patient. I have also personally directed, reviewed, and agree with the discharge instructions and disposition. Disposition - Clinical Impression Clinical Impression: Gastroenteritis - Patient ED Disposition Is Patient to be Admitted: No Counseled Patient/Family Regarding: Studies Performed, Diagnosis, Need For Followup, Rx Given - Disposition [facility] Disposition: Routine/Home Disposition Time: 15:39 Condition: FAIR Prescriptions: Atropine/Diphenoxylate [Lonox 0.025 MG-2.5 MG] 1 tab PO Q8 #10 tab Instructions: Gastroenteritis (ED) Forms: [facility] (Yoruba) Print Language: AMERICAN
[2018-03-05 09:56] LABS: ALB/GLOB RATIO 1.1 (1.0-2.1); ALBUMIN 4.3 g/dL (3.5-5.0); ALT/SGPT 101 U/L (9-52); AST/SGOT 65 U/L (14-36); BLOOD UREA NITROGEN 29 mg/dl (7-17); CALCIUM 10.2 mg/dL (8.4-10.2); GFR NON-AFRICAN AMERICAN > 60
[2018-03-05] MEDS ORDERED: Sodium Chloride 0.9% 50 ML IV ONE (13:31)
[2018-03-05] MEDS ORDERED: Iohexol 300 100 ML IJ ONE (13:31)
--- NOTE | 2018-03-05 14:17 | CT ---
Date of service: 03/05/2018 PROCEDURE: CT Abdomen and Pelvis with contrast HISTORY: Abd pain COMPARISON: None. TECHNIQUE: Contrast dose: Radiation dose: Total exam DLP = 507.33 mGy-cm. This CT exam was performed using one or more of the following dose reduction techniques: Automated exposure control, adjustment of the mA and/or kV according to patient size, and/or use of iterative reconstruction technique. FINDINGS: LOWER THORAX: Unremarkable. LIVER: Unremarkable. No gross lesion or ductal dilatation. GALLBLADDER AND BILE DUCTS: Status post cholecystectomy. PANCREAS: Unremarkable. No gross lesion or ductal dilatation. SPLEEN: Unremarkable. ADRENALS: Unremarkable. No mass. KIDNEYS AND URETERS: Unremarkable. No hydronephrosis. No solid mass. VASCULATURE: Unremarkable. No aortic aneurysm. No aortic atherosclerotic calcification or mural plaque present. BOWEL: Unremarkable. No obstruction. No gross mural thickening. APPENDIX: Normal appendix. PERITONEUM: Unremarkable. No free fluid. No free air. LYMPH NODES: Unremarkable. No enlarged lymph nodes. BLADDER: Unremarkable. REPRODUCTIVE: Intrauterine device in place. BONES: No acute fracture. OTHER FINDINGS: None. IMPRESSION: No acute pathology.
== END 2018-03-05 15:55 | disposition home or self-care (01) ==
LOC: H.ER 08:49
DX: K52.9 Noninfective gastroenteritis and colitis, unspecified (principal); E11.9 Type 2 diabetes mellitus without complications; E78.00 Pure hypercholesterolemia, unspecified; Z79.84 Long term (current) use of oral hypoglycemic drugs; I10 Essential (primary) hypertension
CPT/HCPCS: 74177; 80053; 81025; 82948; 85025; 96361; 96374; 99283; J7030; Q9967

== ENCOUNTER 2018-08-04 20:41 | Inpatient (IN) | payer OTHER, SELFPAY ==
[2018-08-04] MEDS ORDERED: Piperacillin/Tazobact 3.375 GM in Sodium Chloride 0.9% 100 ML IV STA (21:16)
[2018-08-04] MEDS ORDERED: Iohexol 240 (50 ml) PO STA (21:25)
[2018-08-04] MEDS ORDERED: Piperacillin/Tazobact 3.375 gm Inj IVPB ONE ×2 (21:49→21:50)
[2018-08-04] MEDS ORDERED: Iohexol 240 (50 ml) ONE (21:49)
--- NOTE | 2018-08-04 22:12 | ED PDOC ---
HPI: Abdomen Time Seen by Provider: 08/04/18 20:55 Chief Complaint (Nursing): Abdominal Pain Chief Complaint (Provider): Abdominal Pain History Per: Patient History/Exam Limitations: no limitations Onset/Duration Of Symptoms: Days (x3) Current Symptoms Are (Timing): Still Present Additional Complaint(s): 48 year old female with medical history of hypertension and diabetes, presents to the emergency department with complaints of abdominal pain that radiates to left flank, subjective fever, chills, nausea, urine frequency, and burning with urination for 3 days. Additionally, patient reports a lower abdominal skin lesion with redness, swelling, and watery white drainage that has become progressively worse within the week. Today, she reports the pain inten sified, thus, prompting ED visit. Otherwise, she denies vomiting or diarrhea. PCP: none provided Past Medical History Reviewed: Historical Data, Nursing Documentation, Vital Signs Vital Signs: Last Vital Signs Temp 98.8 F 08/04/18 20:50 Pulse 95 H 08/04/18 20:50 Resp 18 08/04/18 20:50 BP 143/93 H 08/04/18 20:50 Pulse Ox 99 08/04/18 20:50 - Medical History PMH: Anxiety, Depression, Diabetes, HTN, Hypercholesterolemia Denies: HIV, Chronic Kidney Disease - Surgical History Surgical History: Cholecystectomy - Family History Family History: States: Unknown Family Hx - Immunization History Hx Tetanus Toxoid Vaccination: No Hx Influenza Vaccination: No Hx Pneumococcal Vaccination: No - Home Medications Home Medications: Ambulatory Orders Medication Instructions Recorded Lisinopril [Zestril] 10 mg PO DAILY 07/05/17 MetFORMIN [glucoPHAGE] 1,000 mg PO BID 07/05/17 Gabapentin [Neurontin] 100 mg PO BID 08/05/18 SITagliptin [Januvia] 50 mg PO DAILY 08/05/18 - Allergies Allergies/Adverse Reactions: Allergies Allergy/AdvReac Type Severity Reaction Status Date / Time No Known Allergies Allergy Verified 08/04/18 20:48 Review of Systems ROS Statement: Except As Marked, All Systems Reviewed And Found Negative Constitutional: Positive for: Fever (subjective), Chills Gastrointestinal: Positive for: Nausea, Abdominal Pain, Other (lower abdominal skin lesion with redness, swelling, and white fluid drainage). Negative for: Vomiting, Diarrhea Genitourinary Female: Positive for: Dysuria (burning), Other (urine frequency) Musculoskeletal: Positive for: Back Pain (left flank) Physical Exam - Reviewed Nursing Documentation Reviewed: Yes Vital Signs Reviewed: Yes - Physical Exam Appears: Positive for: Uncomfortable Head Exam: Positive for: ATRAUMATIC, NORMAL INSPECTION, NORMOCEPHALIC Skin: Positive for: Normal Color Eye Exam: Positive for: Normal appearance ENT: Positive for: Normal ENT Inspection Neck: Positive for: Normal Cardiovascular/Chest: Positive for: Regular Rate, Rhythm Respiratory: Positive for: Normal Breath Sounds. Negative for: Respiratory Distress Gastrointestinal/Abdominal: Positive for: Tenderness (left-sided), Other (large 55x56jo area of cellultic lesion with central vesicular lesions of warmth, induration, and erythema? Zoster) Back: Positive for: L CVA Tenderness. Negative for: R CVA Tenderness Extremity: Positive for: Normal ROM (upper/lower) Neurological/Psych: Positive for: Awake, Alert, Oriented - Laboratory Results Result Diagrams: 08/06/18 05:30 08/06/18 05:30 - ECG O2 Sat by Pulse Oximetry: 99 (RA) Pulse Ox Interpretation: Normal Medical Decision Making Medical Decision Making: Initial Impression: 48 year old female with cellulitis vs Zoster in setting of diabetes and abdominal pain Initial Plan: * CT ABD/pelvis * Labs with UA * Omnipaque IV * Vancomycin inj IVPB * Zosyn IV * Blood culture * Urine culture * Accucheck 0017 CT ABD/pelvis FINDINGS: LUNG BASES: The lung bases appear clear. No pleural effusions are seen. LIVER: Mild hepatomegaly. The liver measured 16.7 cm in the midclavicular line. GALLBLADDER AND BILE DUCTS: Status post cholecystectomy. No biliary ductal dilatation is evident. PANCREAS: Unremarkable. SPLEEN: Unremarkable. ADRENAL GLANDS: Unremarkable. KIDNEYS, URETERS, AND BLADDER: The kidneys appear within normal limits. There is no hydronephrosis or hydroureter. A punctate non-obstructing calculus is seen in the medial mid right renal pole. The urinary bladder appeared normal in size and configuration. STOMACH AND BOWEL: Retained food debris and fluid are seen within the stomach. No evidence of bowel obstruction. No evidence suggesting enteritis or colitis. APPENDIX: The appendix is dilated measuring up to 9.3 mm transversely. Diameters of 6.0 mm or greater are suspicious for acute appendicitis. PERITONEUM: No free fluid. No free air. LYMPH NODES: No lymphadenopathy is evident. REPRODUCTIVE: An IUD is seen within the endometrial canal. A 2.1 x 1.3 cm right ovarian cyst is identified. Otherwise, unremarkable as visualized. VASCULATURE: No evidence of abdominal aortic aneurysm. Minor atherosclerotic vascular plaquing is present. SOFT TISSUES: A zone of subcutaneous stranding is seen in the anterior left pelvic wall thought compatible with localized cellulitis. No subcutaneous abscess formation is seen. BONES: No aggressive appearing osseous lesion. No acute osseous pathology evident. IMPRESSION: 1. Dilatation of the appendix suspicious for acute appendicitis. 2. Localized cellulitis is seen in the subcutaneous soft tissues of the left anterior pelvic wall. 3. A punctate non--obstructing calculus seen in the medial mid right renal pole. 4. 2.1 cm right ovarian cyst. 5. An IUD is present. 6. Status post cholecystectomy. 7. Mild hepatomegaly. Surgical consult called; patient evaluated Case d/w Dr Rich and admitting JHONATAN DX Abdominal Wall Cellulitis vs Zoster, Uncontrolled Diabetes Fair Scribe Attestation: Documented by Stephy Toure, acting as a scribe for Timur Snyder MD. Provider Scribe Attestation: All medical record entries made by the Scribe were at my direction and personally dictated by me. I have reviewed the chart and agree that the record accurately reflects my personal performance of the history, physical exam, medical decision making, and the department course for this patient. I have also personally directed, reviewed, and agree with the discharge instructions and disposition. Disposition - Clinical Impression Clinical Impression: Zoster, Cellulitis - Patient ED Disposition Is Patient to be Admitted: Yes - Disposition Disposition Time: 23:30 Condition: STABLE
[2018-08-04 22:18] LABS: BASO % 0.4 % (0.0-2.0); EOS # 0.1 K/uL (0.0-0.7); EOS % 1.2 % (0.0-4.0); HEMOGLOBIN 14.2 g/dL (12.0-16.0); LYMPH # 2.7 K/uL (1.0-4.3); LYMPH % 28.1 % (20.0-40.0); MEAN CELL VOLUME 96.7 fl (81.0-99.0); MEAN CORPUSCULAR HGB CONC 35.1 g/dL (33.0-37.0); MEAN PLATELET VOLUME 9.6 fl (7.2-11.7); MONO # 0.7 K/uL (0.0-0.8); MONO % 7.8 % (0.0-10.0); NEUT % 62.5 % (50.0-75.0); NRBC % 0.1 % (0.0-0.0); RBC 4.19 Mil/uL (3.80-5.20); RED CELL DISTRIBUTION WIDTH 13.5 % (11.5-14.5); WHITE BLOOD COUNT 9.5 K/uL (4.8-10.8)
[2018-08-04 22:28] LABS: SQUAMOUS EPITHIAL 5 /hpf (0-5); URINE BILIRUBIN NEGATIVE (NEGATIVE); URINE BLOOD NEGATIVE (NEGATIVE); URINE CLARITY SLIGHTY-CLOUDY (Clear); URINE COLOR YELLOW (YELLOW); URINE GLUCOSE (UA) >=500 mg/dL (NEGATIVE); URINE LEUKOCYTE ESTERASE TRACE Leu/uL (Negative); URINE PROTEIN NEGATIVE (NEGATIVE); URINE UROBILINOGEN 0.2-1.0 mg/dL (0.2-1.0)
[2018-08-04] MEDS ORDERED: Iohexol 300 100 ML IJ ONE (22:40)
[2018-08-04] MEDS ORDERED: Sodium Chloride 0.9% 50 ML IV ONE (22:40)
[2018-08-04 22:47] LABS: ALB/GLOB RATIO 1.1 (1.0-2.1); ALBUMIN 4.1 g/dL (3.5-5.0); ALT/SGPT 45 U/L (9-52); AST/SGOT 27 U/L (14-36); BLOOD UREA NITROGEN 15 mg/dl (7-17); CALCIUM 9.3 mg/dL (8.4-10.2); GFR NON-AFRICAN AMERICAN > 60
[2018-08-04] MEDS ORDERED: Insulin Regular 100 units/ml IV ONE (23:42)
[2018-08-04] MEDS ORDERED: Sodium Chloride 0.9% 1,000 ML IV STA (23:42)
[2018-08-04] MEDS ORDERED: Vancomycin 1 g Inj ONE (23:52)
--- NOTE | 2018-08-05 00:52 | CP.PCM.HP ---
<Jamal Brandon - Last Filed: 08/05/18 02:11> History of Present Illness - History of Present Illness History of Present Illness: This is 48 y/o F with PMH of HTN, NIDDM-II, herpes zoster and cholecystectomy admitted to to [facility] for evaluation and treatment of left abdominal wall cellulitis and acute appendicitis. Patient reports she noticed a small pimple last week on her abdomen below umbilicus, which got progressively worse in last 3-4 days with swelling, erythema, pus and pain. Pain is sharp, 4/10, constant, mainly located around pimple and radiating to left flank area, Noticed some pus yesterday. + nausea, and dysuria but denies any vomiting, or fever. PMH/PSH: HTN, NIDDM-II and cholecystectomy Allg: NKDA MEDs: As per EMR FH: Denies SH: No alcohol/smoking or drug use ROS: As per HPI ER COurse: VS: Stable CBC: No wbc CMP: high BS CT abdo/pelvis s/p insulin 10 U s/p Vanco and Zosyn S/p bcx and Ucx S/p toradol and 1 L NS Present on Admission - Present on Admission Any Indicators Present on Admission: No Review of Systems - Constitutional Constitutional: absent: Excessive Sweating - EENT Eyes: absent: Blurred Vision Ears: absent: Ear Discharge, Dizziness Nose/Mouth/Throat: absent: Nasal Discharge, Nose Pain - Breasts Breasts: absent: Pain, Skin Changes, Swelling - Cardiovascular Cardiovascular: absent: Chest Pain - Respiratory Respiratory: absent: Dyspnea - Gastrointestinal Gastrointestinal: Abdominal Pain, Nausea. absent: Change in Stool Character, Coffee Ground Emesis, Constipation, Cramping, Diarrhea, Hematemesis, Melena, Vomiting - Genitourinary Genitourinary: Dysuria, Urinary Frequency - Musculoskeletal Musculoskeletal: absent: Muscle Weakness, Neck Pain, Numbness, Stiffness, Tingling - Integumentary Integumentary: Rash (on abdomen) - Neurological Neurological: absent: Dizziness, Memory Loss, Sensory Deficit, Tingling, Vertigo, Weakness - Psychiatric Psychiatric: absent: Anxiety - Hematologic/Lymphatic Hematologic: absent: Easy Bleeding Past Patient History - Infectious Disease Hx of Infectious Diseases: None - Past Medical History & Family History Past Medical History?: Yes - Past Social History Smoking Status: Never Smoked - CARDIAC Hx Hypercholesterolemia: Yes Hx Hypertension: Yes - PULMONARY Hx Respiratory Disorders: No - NEUROLOGICAL Hx Neurological Disorder: No - HEENT Hx HEENT Problems: No - RENAL Hx Chronic Kidney Disease: No - ENDOCRINE/METABOLIC Hx Endocrine Disorders: Yes Hx Diabetes Mellitus Type 2: Yes - HEMATOLOGICAL/ONCOLOGICAL Hx Human Immunodeficiency Virus (HIV): No - INTEGUMENTARY Hx Dermatological Problems: No - MUSCULOSKELETAL/RHEUMATOLOGICAL Hx Musculoskeletal Disorders: No Hx Falls: No - GASTROINTESTINAL Hx Gastrointestinal Disorders: No - GENITOURINARY/GYNECOLOGICAL Hx Genitourinary Disorders: No - PSYCHIATRIC Hx Anxiety: Yes Hx Depression: Yes - SURGICAL HISTORY Hx Cholecystectomy: Yes - ANESTHESIA Hx Anesthesia: Yes Hx Anesthesia Reactions: No Meds Allergies/Adverse Reactions: Allergies Allergy/AdvReac Type Severity Reaction Status Date / Time No Known Allergies Allergy Verified 08/04/18 20:48 Physical Exam - Constitutional Appears: Other (uncomfortable ) - Head Exam Head Exam: ATRAUMATIC, NORMAL INSPECTION, NORMOCEPHALIC - Eye Exam Eye Exam: EOMI, Normal appearance, PERRL Pupil Exam: NORMAL ACCOMODATION - ENT Exam ENT Exam: Mucous Membranes Moist - Neck Exam Neck exam: Positive for: Normal Inspection - Respiratory Exam Respiratory Exam: Clear to Auscultation Bilateral, NORMAL BREATHING PATTERN - Cardiovascular Exam Cardiovascular Exam: REGULAR RHYTHM, +S1, +S2. absent: Bradycardia, Tachycardia - GI/Abdominal Exam GI & Abdominal Exam: Soft, Tenderness (+ positive mcburney's, + left abdomen tenderness, Large 10x5cm area of cellultic lesion with central vesicular lesions of warmth, induration 2x2cm, and erythema, extending from below umbilicul area to left abdomen. ). absent: Guarding, Rebound - Extremities Exam Extremities exam: Negative for: calf tenderness - Back Exam Back exam: NORMAL INSPECTION. absent: CVA tenderness (L), CVA tenderness (R), rash noted - Neurological Exam Neurological exam: Alert, CN II-XII Intact, Oriented x3 - Psychiatric Exam Psychiatric exam: Normal Affect - Skin Skin Exam: Dry, Intact, Normal Color, Warm Results - Vital Signs Recent Vital Signs: Last Vital Signs Temp 98.8 F 08/04/18 20:50 Pulse 95 H 08/04/18 20:50 Resp 18 08/04/18 20:50 BP 143/93 H 08/04/18 20:50 Pulse Ox 99 08/05/18 00:19 - Labs Result Diagrams: 08/04/18 22:08 08/04/18 22:08 Labs: Laboratory Results - last 24 hr 08/04/18 08/04/18 08/04/18 22:08 22:08 22:08 WBC 9.5 RBC 4.19 Hgb 14.2 Hct 40.5 MCV 96.7 MCH 34.0 H MCHC 35.1 RDW 13.5 Plt Count 167 MPV 9.6 Neut % (Auto) 62.5 Lymph % (Auto) 28.1 [place] % (Auto) 7.8 Eos % (Auto) 1.2 Baso % (Auto) 0.4 Neut # (Auto) 6.0 Lymph # (Auto) 2.7 [place] # (Auto) 0.7 Eos # (Auto) 0.1 Baso # (Auto) 0.0 Sodium 132 Potassium 4.0 Chloride 98 Carbon Dioxide 22 Anion Gap 16 BUN 15 Creatinine 0.5 L Est GFR ( Amer) > 60 Est GFR (Non-Af Amer) > 60 Random Glucose 463 H* D Lactic Acid 2.3 H Calcium 9.3 Total Bilirubin 0.5 AST 27 ALT 45 Alkaline Phosphatase 212 H D Total Protein 7.7 Albumin 4.1 Globulin 3.6 Albumin/Globulin Ratio 1.1 Urine Color Urine Clarity Urine pH Ur Specific [place] Urine Protein Urine Glucose (UA) Urine Ketones Urine Blood Urine Nitrate Urine Bilirubin Urine Urobilinogen Ur Leukocyte Esterase Urine RBC (Auto) Urine Microscopic WBC Ur Squamous Epith Cells Hyaline Casts 08/04/18 22:08 WBC RBC Hgb Hct MCV MCH MCHC RDW Plt Count MPV Neut % (Auto) Lymph % (Auto) [place] % (Auto) Eos % (Auto) Baso % (Auto) Neut # (Auto) Lymph # (Auto) [place] # (Auto) Eos # (Auto) Baso # (Auto) Sodium Potassium Chloride Carbon Dioxide Anion Gap BUN Creatinine Est GFR ( Amer) Est GFR (Non-Af Amer) Random Glucose Lactic Acid Calcium Total Bilirubin AST ALT Alkaline Phosphatase Total Protein Albumin Globulin Albumin/Globulin Ratio Urine Color Yellow Urine Clarity Slighty-cloudy Urine pH 7.0 Ur Specific [place] 1.022 Urine Protein Negative Urine Glucose (UA) >=500 Urine Ketones 20 Urine Blood Negative Urine Nitrate Negative Urine Bilirubin Negative Urine Urobilinogen 0.2-1.0 Ur Leukocyte Esterase Trace Urine RBC (Auto) 2 Urine Microscopic WBC 1 Ur Squamous Epith Cells 5 Hyaline Casts 3-5 H Assessment & Plan - Assessment and Plan (Free Text) Assessment: A/P: 48 y/o F with PMH of HTN, NIDDM-II, herpes zoster and cholecystectomy admitted to to [facility] for evaluation and treatment of left abdominal wall cellulitis and acute appendicitis. Abdominal wall cellulitis/Abscess - CT: Localized cellulitis is seen in the subcutaneous soft tissues of the left anterior pelvic wall - START Vancomycin Q12H - START Zosyn Q6H - Warm compressions - Monitor progression - F/u Bcx Acute appendicitis - CT: Dilatation of the appendix suspicious for acute appendicitis - Consult Surgery, f/u recommendations - START Vancomycin Q12H - START Zosyn Q6H - NPO, IVF Left side flank pain, may be due to early stage of Herpes Zoster - C/w Gabapentin - Pain management - Treat if any sign of skin changes HTN - Chronic, controlled - Home medications Lisinop-HCTZ 20-12.5mg NIDDM-II - Chronic, uncontrolled - C/w Sliding scale/Hypoglycemic protocol - AccuChecks ACHS - Hold Metformin/Glimepirid and Januvia DVT PPX - SCD for now Case discussed with Dr. Rich, Agrees with plan <Kyle Rich - Last Filed: 08/05/18 06:45> Results - Vital Signs Recent Vital Signs: Last Vital Signs Temp 98.3 F 08/05/18 02:20 Pulse 82 08/05/18 02:20 Resp 18 08/05/18 02:20 BP 123/74 08/05/18 02:20 Pulse Ox 98 08/05/18 02:20 - Labs Result Diagrams: 08/04/18 22:08 08/04/18 22:08 Labs: Laboratory Results - last 24 hr 08/04/18 08/04/18 08/04/18 22:08 22:08 22:08 WBC 9.5 RBC 4.19 Hgb 14.2 Hct 40.5 MCV 96.7 MCH 34.0 H MCHC 35.1 RDW 13.5 Plt Count 167 MPV 9.6 Neut % (Auto) 62.5 Lymph % (Auto) 28.1 [place] % (Auto) 7.8 Eos % (Auto) 1.2 Baso % (Auto) 0.4 Neut # (Auto) 6.0 Lymph # (Auto) 2.7 [place] # (Auto) 0.7 Eos # (Auto) 0.1 Baso # (Auto) 0.0 Sodium 132 Potassium 4.0 Chloride 98 Carbon Dioxide 22 Anion Gap 16 BUN 15 Creatinine 0.5 L Est GFR ( Amer) > 60 Est GFR (Non-Af Amer) > 60 POC Glucose (mg/dL) Random Glucose 463 H* D Lactic Acid 2.3 H Calcium 9.3 Total Bilirubin 0.5 AST 27 ALT 45 Alkaline Phosphatase 212 H D Total Protein 7.7 Albumin 4.1 Globulin 3.6 Albumin/Globulin Ratio 1.1 Urine Color Urine Clarity Urine pH Ur Specific [place] Urine Protein Urine Glucose (UA) Urine Ketones Urine Blood Urine Nitrate Urine Bilirubin Urine Urobilinogen Ur Leukocyte Esterase Urine RBC (Auto) Urine Microscopic WBC Ur Squamous Epith Cells Hyaline Casts 08/04/18 08/04/18 08/05/18 22:08 23:40 01:10 WBC RBC Hgb Hct MCV MCH MCHC RDW Plt Count MPV Neut % (Auto) Lymph % (Auto) [place] % (Auto) Eos % (Auto) Baso % (Auto) Neut # (Auto) Lymph # (Auto) [place] # (Auto) Eos # (Auto) Baso # (Auto) Sodium Potassium Chloride Carbon Dioxide Anion Gap BUN Creatinine Est GFR ( Amer) Est GFR (Non-Af Amer) POC Glucose (mg/dL) 438 H* 327 H Random Glucose Lactic Acid Calcium Total Bilirubin AST ALT Alkaline Phosphatase Total Protein Albumin Globulin Albumin/Globulin Ratio Urine Color Yellow Urine Clarity Slighty-cloudy Urine pH 7.0 Ur Specific [place] 1.022 Urine Protein Negative Urine Glucose (UA) >=500 Urine Ketones 20 Urine Blood Negative Urine Nitrate Negative Urine Bilirubin Negative Urine Urobilinogen 0.2-1.0 Ur Leukocyte Esterase Trace Urine RBC (Auto) 2 Urine Microscopic WBC 1 Ur Squamous Epith Cells 5 Hyaline Casts 3-5 H 08/05/18 05:21 WBC RBC Hgb Hct MCV MCH MCHC RDW Plt Count MPV Neut % (Auto) Lymph % (Auto) [place] % (Auto) Eos % (Auto) Baso % (Auto) Neut # (Auto) Lymph # (Auto) [place] # (Auto) Eos # (Auto) Baso # (Auto) Sodium Potassium Chloride Carbon Dioxide Anion Gap BUN Creatinine Est GFR ( Amer) Est GFR (Non-Af Amer) POC Glucose (mg/dL) 275 H Random Glucose Lactic Acid Calcium Total Bilirubin AST ALT Alkaline Phosphatase Total Protein Albumin Globulin Albumin/Globulin Ratio Urine Color Urine Clarity Urine pH Ur Specific [place] Urine Protein Urine Glucose (UA) Urine Ketones Urine Blood Urine Nitrate Urine Bilirubin Urine Urobilinogen Ur Leukocyte Esterase Urine RBC (Auto) Urine Microscopic WBC Ur Squamous Epith Cells Hyaline Casts Attending/Attestation - Attestation I have personally seen and examined this patient.: Yes I have fully participated in the care of the patient.: Yes I have reviewed all pertinent clinical information: Yes Notes (Text): 08/05/18 06:36 I saw, examined and discussed this patient with Dr Brandon. I agree with the as sessment and plan outlined which represent my direct input. This is a 48 years old female with hx of DM II, Nephrolithiasis and Herpes Zoster who comes with pain at the left flank radiating anterior to left lower abdomen to pelvic region where there is an abscess and in center of a cellulitic area. The CT abdomen/Pelvis does not show pathology at the left abdomen nor back. We will treat the abdominal wall abscess with Cellulitis with Vancomycin and Zosyn. Treat the Pain at the left abdomen as probable early Herpes Zoster, although an ultrasound could further be used to evaluate for left side kidney stones. Treat Diabetes Mellitus with hyperglycemia. Kyle Rich MD
--- NOTE | 2018-08-05 01:09 | CP.PCM.CON ---
<Juanjose Davis D - Last Filed: 08/05/18 05:24> History of Present Illness - History of Present Illness History of Present Illness: SURGERY CONSULT NOTE FOR DR. UNDERWOOD Reason: r/o appendicitis, abdomen wall cellulitis 48F presents with abdominal pain that began yesterday. Patient states the pain is located around an area of cellulitis in the LLQ and radiates towards the left flank. She states she has never had pain like this before. She denies any pain on the right abdomen, denies nausea or vomiting, denies fevers or chills. Admits to history of constipation. Patient states she has been tolerating diet. And feels like she can eat. She states area of cellulitis and induration was d raining sanguinous fluid yesterday but since stopped. Denies any purulent drainage. PMH: DM, HTN, HLD PSH: Lap cholecystectomy Social: denies tobacco, alcohol illicit drug use Allergies: NKDA Past Patient History - Infectious Disease Hx of Infectious Diseases: None - Past Medical History & Family History Past Medical History?: Yes - Past Social History Smoking Status: Never Smoked - CARDIAC Hx Hypercholesterolemia: Yes Hx Hypertension: Yes - PULMONARY Hx Respiratory Disorders: No - NEUROLOGICAL Hx Neurological Disorder: No - HEENT Hx HEENT Problems: No - RENAL Hx Chronic Kidney Disease: No - ENDOCRINE/METABOLIC Hx Endocrine Disorders: Yes Hx Diabetes Mellitus Type 2: Yes - HEMATOLOGICAL/ONCOLOGICAL Hx Human Immunodeficiency Virus (HIV): No - INTEGUMENTARY Hx Dermatological Problems: No - MUSCULOSKELETAL/RHEUMATOLOGICAL Hx Musculoskeletal Disorders: No Hx Falls: No - GASTROINTESTINAL Hx Gastrointestinal Disorders: No - GENITOURINARY/GYNECOLOGICAL Hx Genitourinary Disorders: No - PSYCHIATRIC Hx Anxiety: Yes Hx Depression: Yes - SURGICAL HISTORY Hx Cholecystectomy: Yes - ANESTHESIA Hx Anesthesia: Yes Hx Anesthesia Reactions: No Meds Allergies/Adverse Reactions: Allergies Allergy/AdvReac Type Severity Reaction Status Date / Time No Known Allergies Allergy Verified 08/04/18 20:48 - Medications Medications: Current Medications Acetaminophen (Tylenol 325mg Tab) 650 mg PO Q6 PRN PRN Reason: Fever >100.4 F Vancomycin HCl 1 gm/ Sodium (Chloride) 250 mls @ 166.667 mls/hr IVPB STAT STA; Protocol Stop: 08/05/18 02:04 Last Admin: 08/05/18 00:36 Dose: 166.667 mls/hr Sodium Chloride (Sodium Chloride 0.9%) 1,000 mls @ 125 mls/hr IV .Q8H PALLAVI Ketorolac Tromethamine (Toradol) 30 mg IVP Q6 PRN PRN Reason: Pain, severe (8-10) Ketorolac Tromethamine (Toradol) 15 mg IVP Q6 PRN PRN Reason: Pain, moderate (4-7) Ondansetron HCl (Zofran Inj) 4 mg IVP Q6 PRN PRN Reason: Nausea/Vomiting Physical Exam - Constitutional Appears: Non-toxic, No Acute Distress - Eye Exam Eye Exam: EOMI, PERRL - Respiratory Exam Respiratory Exam: Clear to Auscultation Bilateral, NORMAL BREATHING PATTERN - Cardiovascular Exam Cardiovascular Exam: REGULAR RHYTHM, +S1, +S2 - GI/Abdominal Exam GI & Abdominal Exam: Soft, Tenderness (LLQ left flank tenderness). absent: D istended, Firm, Guarding, Rebound, Rigid Additional comments: LLQ area of cellulitis and induration approximately 5cm in diameter - Extremities Exam Extremities exam: Negative for: pedal edema, tenderness - Neurological Exam Neurological exam: Alert, Oriented x3 - Psychiatric Exam Psychiatric exam: Normal Affect, Normal Mood - Skin Skin Exam: Dry, Intact, Normal Color, Warm Additional comments: LLQ area of cellulitis and induration approximately 5cm in diameter Results - Vital Signs Recent Vital Signs: Last Vital Signs Temp 98.8 F 08/04/18 20:50 Pulse 95 H 08/04/18 20:50 Resp 18 08/04/18 20:50 BP 143/93 H 08/04/18 20:50 Pulse Ox 99 08/05/18 00:19 - Labs Result Diagrams: 08/04/18 22:08 08/04/18 22:08 Labs: Laboratory Results - last 24 hr 08/04/18 08/04/18 08/04/18 22:08 22:08 22:08 WBC 9.5 RBC 4.19 Hgb 14.2 Hct 40.5 MCV 96.7 MCH 34.0 H MCHC 35.1 RDW 13.5 Plt Count 167 MPV 9.6 Neut % (Auto) 62.5 Lymph % (Auto) 28.1 [place] % (Auto) 7.8 Eos % (Auto) 1.2 Baso % (Auto) 0.4 Neut # (Auto) 6.0 Lymph # (Auto) 2.7 [place] # (Auto) 0.7 Eos # (Auto) 0.1 Baso # (Auto) 0.0 Sodium 132 Potassium 4.0 Chloride 98 Carbon Dioxide 22 Anion Gap 16 BUN 15 Creatinine 0.5 L Est GFR ( Amer) > 60 Est GFR (Non-Af Amer) > 60 Random Glucose 463 H* D Lactic Acid 2.3 H Calcium 9.3 Total Bilirubin 0.5 AST 27 ALT 45 Alkaline Phosphatase 212 H D Total Protein 7.7 Albumin 4.1 Globulin 3.6 Albumin/Globulin Ratio 1.1 Urine Color Urine Clarity Urine pH Ur Specific [place] Urine Protein Urine Glucose (UA) Urine Ketones Urine Blood Urine Nitrate Urine Bilirubin Urine Urobilinogen Ur Leukocyte Esterase Urine RBC (Auto) Urine Microscopic WBC Ur Squamous Epith Cells Hyaline Casts 08/04/18 22:08 WBC RBC Hgb Hct MCV MCH MCHC RDW Plt Count MPV Neut % (Auto) Lymph % (Auto) [place] % (Auto) Eos % (Auto) Baso % (Auto) Neut # (Auto) Lymph # (Auto) [place] # (Auto) Eos # (Auto) Baso # (Auto) Sodium Potassium Chloride Carbon Dioxide Anion Gap BUN Creatinine Est GFR ( Amer) Est GFR (Non-Af Amer) Random Glucose Lactic Acid Calcium Total Bilirubin AST ALT Alkaline Phosphatase Total Protein Albumin Globulin Albumin/Globulin Ratio Urine Color Yellow Urine Clarity Slighty-cloudy Urine pH 7.0 Ur Specific [place] 1.022 Urine Protein Negative Urine Glucose (UA) >=500 Urine Ketones 20 Urine Blood Negative Urine Nitrate Negative Urine Bilirubin Negative Urine Urobilinogen 0.2-1.0 Ur Leukocyte Esterase Trace Urine RBC (Auto) 2 Urine Microscopic WBC 1 Ur Squamous Epith Cells 5 Hyaline Casts 3-5 H Assessment & Plan - Assessment and Plan (Free Text) Assessment: 48F with abdominal wall cellulitis, CT scan shows dilated appendix, no surrounding stranding Clinically does not match appendicitis Plan: - Warm compresses on area of induration - IV antibiotics - Serial abdominal exams - No OR at this point Discussed with Dr. Cristobal Davis, PGY3 <Brown Underwood - Last Filed: 08/05/18 12:49> Meds - Medications Medications: Current Medications Acetaminophen (Tylenol 325mg Tab) 650 mg PO Q6 PRN PRN Reason: Fever >100.4 F Capsaicin (Trixaicin Cream) 1 applic TOP Q6 [facility] Last Admin: 08/05/18 09:12 Dose: 1 applic Dextrose (Dextrose 50% Inj) 0 ml IV STAT PRN; Protocol PRN Reason: Hypoglycemia Protocol Dextrose (Glutose 15) 0 gm PO ONCE PRN; Protocol PRN Reason: Hypoglycemia Protocol Gabapentin (Neurontin) 100 mg PO BID [facility] Last Admin: 08/05/18 09:12 Dose: 100 mg Glucagon (Glucagen Diagnostic Kit) 0 mg IM STAT PRN; Protocol PRN Reason: Hypoglycemia Protocol Sodium Chloride (Sodium Chloride 0.9%) 1,000 mls @ 125 mls/hr IV .Q8H [facility] Last Admin: 08/05/18 11:25 Dose: Not Given Vancomycin HCl 1 gm/ Sodium (Chloride) 250 mls @ 166.667 mls/hr IVPB Q12 [facility]; Protocol Last Admin: 08/05/18 09:09 Dose: 166.667 mls/hr Piperacillin Sod/Tazobactam (Sod 3.375 gm/ Sodium Chloride) 100 mls @ 100 mls/hr IVPB Q6 [facility]; Protocol Last Admin: 08/05/18 11:24 Dose: 100 mls/hr Insulin Detemir (Levemir) 5 units SC [facility] Insulin Human Lispro (Humalog) 0 units SC ACHS [facility]; Protocol Last Admin: 08/05/18 11:33 Dose: 2 units Ketorolac Tromethamine (Toradol) 15 mg IVP Q6 PRN PRN Reason: Pain, Mild (1-3) Ketorolac Tromethamine (Toradol) 30 mg IVP Q6 PRN PRN Reason: Pain, moderate (4-7) Lisinopril (Zestril) 10 mg PO DAILY [facility] Metformin HCl (Glucophage) 1,000 mg PO BID [facility] Ondansetron HCl (Zofran Inj) 4 mg IVP Q6 PRN PRN Reason: Nausea/Vomiting Sitagliptin Phosphate (Januvia) 50 mg PO DAILY [facility] Tramadol HCl (Ultram) 50 mg PO Q4 PRN PRN Reason: Pain, severe (8-10) Results - Vital Signs Recent Vital Signs: Last Vital Signs Temp 97.6 F 08/05/18 08:58 Pulse 76 08/05/18 08:58 Resp 20 08/05/18 08:58 BP 127/73 08/05/18 08:58 Pulse Ox 98 08/05/18 08:58 - Labs Result Diagrams: 08/05/18 08:00 08/05/18 08:00 Labs: Laboratory Results - last 24 hr 08/04/18 08/04/18 08/04/18 22:08 22:08 22:08 WBC 9.5 RBC 4.19 Hgb 14.2 Hct 40.5 MCV 96.7 MCH 34.0 H MCHC 35.1 RDW 13.5 Plt Count 167 MPV 9.6 Neut % (Auto) 62.5 Lymph % (Auto) 28.1 [place] % (Auto) 7.8 Eos % (Auto) 1.2 Baso % (Auto) 0.4 Neut # (Auto) 6.0 Lymph # (Auto) 2.7 [place] # (Auto) 0.7 Eos # (Auto) 0.1 Baso # (Auto) 0.0 PT INR APTT Sodium 132 Potassium 4.0 Chloride 98 Carbon Dioxide 22 Anion Gap 16 BUN 15 Creatinine 0.5 L Est GFR ( Amer) > 60 Est GFR (Non-Af Amer) > 60 POC Glucose (mg/dL) Random Glucose 463 H* D Lactic Acid 2.3 H Calcium 9.3 Total Bilirubin 0.5 AST 27 ALT 45 Alkaline Phosphatase 212 H D Total Protein 7.7 Albumin 4.1 Globulin 3.6 Albumin/Globulin Ratio 1.1 Urine Color Urine Clarity Urine pH Ur Specific [place] Urine Protein Urine Glucose (UA) Urine Ketones Urine Blood Urine Nitrate Urine Bilirubin Urine Urobilinogen Ur Leukocyte Esterase Urine RBC (Auto) Urine Microscopic WBC Ur Squamous Epith Cells Hyaline Casts 08/04/18 08/04/18 08/05/18 22:08 23:40 01:10 WBC RBC Hgb Hct MCV MCH MCHC RDW Plt Count MPV Neut % (Auto) Lymph % (Auto) [place] % (Auto) Eos % (Auto) Baso % (Auto) Neut # (Auto) Lymph # (Auto) [place] # (Auto) Eos # (Auto) Baso # (Auto) PT INR APTT Sodium Potassium Chloride Carbon Dioxide Anion Gap BUN Creatinine Est GFR ( Amer) Est GFR (Non-Af Amer) POC Glucose (mg/dL) 438 H* 327 H Random Glucose Lactic Acid Calcium Total Bilirubin AST ALT Alkaline Phosphatase Total Protein Albumin Globulin Albumin/Globulin Ratio Urine Color Yellow Urine Clarity Slighty-cloudy Urine pH 7.0 Ur Specific [place] 1.022 Urine Protein Negative Urine Glucose (UA) >=500 Urine Ketones 20 Urine Blood Negative Urine Nitrate Negative Urine Bilirubin Negative Urine Urobilinogen 0.2-1.0 Ur Leukocyte Esterase Trace Urine RBC (Auto) 2 Urine Microscopic WBC 1 Ur Squamous Epith Cells 5 Hyaline Casts 3-5 H 08/05/18 08/05/18 08/05/18 05:21 06:00 08:00 WBC 7.6 RBC 3.81 Hgb 12.7 Hct 37.7 MCV 98.7 D MCH 33.4 H MCHC 33.8 RDW 13.4 Plt Count 150 MPV 9.9 Neut % (Auto) 57.4 Lymph % (Auto) 31.5 [place] % (Auto) 9.1 Eos % (Auto) 1.6 Baso % (Auto) 0.4 Neut # (Auto) 4.3 Lymph # (Auto) 2.4 [place] # (Auto) 0.7 Eos # (Auto) 0.1 Baso # (Auto) 0.0 PT 10.8 INR 1.0 APTT 34.1 Sodium Potassium Chloride Carbon Dioxide Anion Gap BUN Creatinine Est GFR ( Amer) Est GFR (Non-Af Amer) POC Glucose (mg/dL) 275 H Random Glucose Lactic Acid Calcium Total Bilirubin AST ALT Alkaline Phosphatase Total Protein Albumin Globulin Albumin/Globulin Ratio Urine Color Urine Clarity Urine pH Ur Specific [place] Urine Protein Urine Glucose (UA) Urine Ketones Urine Blood Urine Nitrate Urine Bilirubin Urine Urobilinogen Ur Leukocyte Esterase Urine RBC (Auto) Urine Microscopic WBC Ur Squamous Epith Cells Hyaline Casts 08/05/18 08/05/18 08/05/18 08:00 09:30 10:56 WBC RBC Hgb Hct MCV MCH MCHC RDW Plt Count MPV Neut % (Auto) Lymph % (Auto) [place] % (Auto) Eos % (Auto) Baso % (Auto) Neut # (Auto) Lymph # (Auto) [place] # (Auto) Eos # (Auto) Baso # (Auto) PT INR APTT Sodium 137 Potassium 3.4 L Chloride 107 Carbon Dioxide 21 L Anion Gap 12 BUN 21 H Creatinine 0.4 L Est GFR ( Amer) > 60 Est GFR (Non-Af Amer) > 60 POC Glucose (mg/dL) 153 H Random Glucose 247 H Lactic Acid 1.4 Calcium 8.3 L Total Bilirubin 0.2 AST 19 ALT 39 Alkaline Phosphatase 166 H D Total Protein 6.4 Albumin 3.3 L Globulin 3.2 Albumin/Globulin Ratio 1.0 Urine Color Urine Clarity Urine pH Ur Specific [place] Urine Protein Urine Glucose (UA) Urine Ketones Urine Blood Urine Nitrate Urine Bilirubin Urine Urobilinogen Ur Leukocyte Esterase Urine RBC (Auto) Urine Microscopic WBC Ur Squamous Epith Cells Hyaline Casts Assessment & Plan - Assessment and Plan (Free Text) Plan: no evidence appendicitis, will start diet, treat cellulitis with abx, warm compresses, no draionable abscess yet
[2018-08-05] MEDS ORDERED: Insulin Regular 100 units/ml SC STA (01:13)
[2018-08-05] MEDS ORDERED: Insulin Regular 100 units/ml ONE (01:15)
[2018-08-05] MEDS ORDERED: Glucagon Recombinant 1 mg Inj IM PRN (01:45)
[2018-08-05] MEDS ORDERED: Dextrose 50% SYRINGE Inj (50 ml) IV PRN (01:45)
[2018-08-05] MEDS: Sodium Chloride 0.9% 1,000 ML IV SCH ×4 (03:05→16:23)
[2018-08-05] MEDS: Piperacillin/Tazobact 3.375 GM in Sodium Chloride 0.9% 100 ML IVPB SCH ×4 (05:53→21:55)
[2018-08-05 07:49] LABS: PROTHROMBIN TIME 10.8 Seconds (9.8-13.1)
[2018-08-05 07:52] LABS: PARTIAL THROMBOPLASTIN TIME 34.1 Seconds (25.6-37.1)
[2018-08-05 08:29] LABS: BASO % 0.4 % (0.0-2.0); EOS # 0.1 K/uL (0.0-0.7); EOS % 1.6 % (0.0-4.0); HEMOGLOBIN 12.7 g/dL (12.0-16.0); LYMPH # 2.4 K/uL (1.0-4.3); LYMPH % 31.5 % (20.0-40.0); MEAN CELL VOLUME 98.7 fl (81.0-99.0); MEAN CORPUSCULAR HEMOGLOBIN 33.4 pg (27.0-31.0); MEAN CORPUSCULAR HGB CONC 33.8 g/dL (33.0-37.0); MEAN PLATELET VOLUME 9.9 fl (7.2-11.7); MONO # 0.7 K/uL (0.0-0.8); MONO % 9.1 % (0.0-10.0); NEUT # 4.3 K/uL (1.8-7.0); NEUT % 57.4 % (50.0-75.0); NRBC % 0.1 % (0.0-0.0); RBC 3.81 Mil/uL (3.80-5.20); RED CELL DISTRIBUTION WIDTH 13.4 % (11.5-14.5); WHITE BLOOD COUNT 7.6 K/uL (4.8-10.8)
[2018-08-05 09:06] LABS: ALBUMIN 3.3 g/dL (3.5-5.0); ALT/SGPT 39 U/L (9-52); AST/SGOT 19 U/L (14-36); BLOOD UREA NITROGEN 21 mg/dl (7-17); CALCIUM 8.3 mg/dL (8.4-10.2); GFR NON-AFRICAN AMERICAN > 60
[2018-08-05] MEDS: Insulin Lispro (humaLOG) 100 Units/ml Inj SC SCH ×4 (09:10→21:56)
[2018-08-05] MEDS ORDERED: Piperacillin/Tazobact 3.375 GM in Sodium Chloride 0.9% 100 ML IVPB SCH (10:00)
[2018-08-05] MEDS ORDERED: HYDROmorphone 0.5 mg/0.5 ml ISec IVP ONE (11:10)
--- NOTE | 2018-08-05 11:41 | PCM.RRT ---
<Jose Morris - Last Filed: 08/05/18 13:26> DRIVER/GUIDE Nurse Assessment - Situation DRIVER/GUIDE Responder Arrival Time: 10:55 I.Reason for DRIVER/GUIDE - A) Acute Change in Patient: Subjective: A 58 yo f with PMH of HTN, DM 2, Herpes zoster and cholecystectomy admitted to med/surge to evaluate and tx cellulities/abscess and acute appendicitis. DRIVER/GUIDE was called today due to nurse report patient was complaining of chest pain, DRIVER/GUIDE arrived at 10:57, upon arrival patient Vitals WNL, Upon asking patient, patient report that the ``pain`` is more like itchiness on right chest, otherwise she denies any other complain. PE was positive of redness on RIGHT chest it improve upon applying friction, otherwise patient have no other complains. EKG was done No st T changes. Patient received 1 dose of hydromorphone 0.5mg. Patient was stable and not in acute distress. * Reviewing her lab patient is hypokalemia 3.4 Plan and assessment This is a 58 yo f with PMH of HTN, DM2, Herpesm cholecystectomy, DRIVER/GUIDE was called today to evaluate for Chest pain, chest pain r/o Test EKG No ST T changes Medication added Toradol 15 for mild pain toradol 30 for mod pain Toradol 50 for severe pain KCL 20 Po Capsaicin topical q6h - Neurological Status (Select all that apply): Alert, Responsive, Oriented, Verbal, Follows Commands - Constitutional Appears: Well, Non-toxic, No Acute Distress - Eyes Eye Exam: EOMI, Normal appearance, PERRL - Respiratory Exam Respiratory Exam: Clear to Ausculation Bilateral, NORMAL BREATHING PATTERN - Cardiovascular Exam Cardiovascular Exam: REGULAR RHYTHM, +S1, +S2 - GI/Abdominal Exam GI & Abdominal Exam: Soft, Normal Bowel Sounds - Neurological Exam Neurological Exam: Alert, Awake, CN II-XII Intact, Normal Gait, Oriented x3 - Extremities Exam Extremities Exam: Full ROM, Normal Capillary Refill, Normal Inspection Additional comments: erythema noted on right upper chest. <Suzi Enrique - Last Filed: 08/05/18 16:23> Attending/Attestation - Attestation I have personally seen and examined this patient.: Yes I have fully participated in the care of the patient.: Yes I have reviewed all pertinent clinical information, including history, physical exam and plan: Yes Notes (Text): Right Chest Pruritus Abdominal Wall Pain/Cellulitis Pt denies Chest Pain - apply Hydrocortisone cream to chest pruritus - Pain mgt with Ultram and Toradol for abd wall pain - connt IV Zosyn and Vanco - Warm compress - Surgery on consult ? I&D - EKG : no acute S T T amaya
[2018-08-05] MEDS ORDERED: Potassium Chloride 20 mEq ER Tab PO ONE (13:30)
--- NOTE | 2018-08-05 14:32 | CT ---
Date of service: 08/04/2018 PROCEDURE: CT Abdomen and Pelvis with and without intravenous contrast HISTORY: fever/cellulitic lesion lower abdomen ?renal colic COMPARISON: Abdomen pelvis CT with contrast 03/05/2018. TECHNIQUE: Axial images of the abdomen were obtained in the pre contrast, portal venous and delayed phases of enhancement. Coronal and sagittal reformats were generated. Contrast dose: Omnipaque 300, 90 cc Radiation dose: Total exam DLP = 917.88 mGy-cm. This CT exam was performed using one or more of the following dose reduction techniques: Automated exposure control, adjustment of the mA and/or kV according to patient size, and/or use of iterative reconstruction technique. FINDINGS: LOWER THORAX: Unremarkable. LIVER: Unremarkable. No gross lesion or ductal dilatation. GALLBLADDER AND BILE DUCTS: Prior cholecystectomy again evident. No significant biliary tree dilatation appreciated. PANCREAS: Unremarkable. No gross lesion or ductal dilatation. SPLEEN: Unremarkable. ADRENALS: Unremarkable. No mass. KIDNEYS AND URETERS: One or 2 punctate intrarenal calculi are questioned at the midpole right kidney with none at the left. No obstructive uropathy bilaterally. No definite solid parenchymal mass bilaterally. Minimal streaky perinephric changes are seen bilaterally which are slightly increased but are nonspecific. VASCULATURE: Unremarkable. No aortic aneurysm. No aortic atherosclerotic calcification or mural plaque present. BOWEL: The stomach is distended with retained food and otherwise appears unremarkable as imaged.. No obstruction. No gross mural thickening. Evaluation of the gastrointestinal tract is limited due to the lack of oral contrast administration. APPENDIX: The appendix measures 7.3 mm thickness but there is no pericolic appendiceal reaction or fluid collection to define appendicitis positively. Clinically correlate nevertheless given its prominent caliber to exclude potential appendicitis. PERITONEUM: Unremarkable. No free fluid. No free air. LYMPH NODES: Unremarkable. No enlarged lymph nodes. BLADDER: Unremarkable. REPRODUCTIVE: Intrauterine device in situ once again. 2.1 cm right ovarian cyst identified. BONES: No acute fracture. OTHER FINDINGS: Reactive changes at the lower left anterior pelvic wall may reflect cellulitis without abscess or emphysematous soft tissue changes. Clinically correlate further. IMPRESSION: 1. The appendix appears somewhat more prominent in caliber than previously shown currently measuring 7.3 mm in previously demonstrated at 6 mm greatest caliber. No periappendiceal reaction or fluid to define appendicitis or gross mural thickening however this is difficult to exclude and further clinical correlation is advised. 2. Prior cholecystectomy reiterated. 3. 1 or 2 punctate intrarenal calculi midpole right kidney. Nonspecific slight increase in perinephric streaky changes bilaterally. 4. Potential localized cellulitis anterior pelvic wall subcutaneous fat. No abscess or emphysematous soft tissue changes related. 5. 2.1 cm right adnexal cyst. Concordant preliminary report from Jose Luis, 08/05/2018, 12:17 a.m..
[2018-08-05] MEDS ORDERED: Insulin Detemir 100 Units/ml Inj SC SCH (22:00)
[2018-08-06] MEDS: Sodium Chloride 0.9% 1,000 ML IV SCH ×3 (01:22→22:02)
[2018-08-06] MEDS: Piperacillin/Tazobact 3.375 GM in Sodium Chloride 0.9% 100 ML IVPB SCH ×4 (03:06→21:55)
[2018-08-06 07:24] LABS: BASO % 0.3 % (0.0-2.0); EOS # 0.1 K/uL (0.0-0.7); EOS % 1.7 % (0.0-4.0); LYMPH # 2.5 K/uL (1.0-4.3); LYMPH % 33.4 % (20.0-40.0); MEAN CELL VOLUME 98.6 fl (81.0-99.0); MEAN CORPUSCULAR HEMOGLOBIN 34.1 pg (27.0-31.0); MEAN CORPUSCULAR HGB CONC 34.6 g/dL (33.0-37.0); MEAN PLATELET VOLUME 9.5 fl (7.2-11.7); MONO # 0.6 K/uL (0.0-0.8); MONO % 7.7 % (0.0-10.0); NEUT # 4.2 K/uL (1.8-7.0); NEUT % 56.9 % (50.0-75.0); NRBC % 0.2 % (0.0-0.0); RBC 3.53 Mil/uL (3.80-5.20); RED CELL DISTRIBUTION WIDTH 13.6 % (11.5-14.5); WHITE BLOOD COUNT 7.4 K/uL (4.8-10.8)
[2018-08-06 07:34] LABS: BLOOD UREA NITROGEN 12 mg/dl (7-17); GFR NON-AFRICAN AMERICAN > 60
[2018-08-06] MEDS: Insulin Lispro (humaLOG) 100 Units/ml Inj SC SCH ×4 (08:43→22:06)
--- NOTE | 2018-08-06 11:56 | CP.PCM.PN ---
Subjective - Date & Time of Evaluation Date of Evaluation: 08/06/18 Time of Evaluation: 11:54 - Subjective Subjective: pt abscess has necessitated but is not fully drained Objective - Vital Signs/Intake and Output Vital Signs (last 24 hours): Temp Pulse Resp BP Pulse Ox 97.8 F 71 20 131/81 99 08/06/18 08:46 08/06/18 09:55 08/06/18 08:46 08/06/18 09:55 08/06/18 08:46 - Medications Medications: Current Medications Acetaminophen (Tylenol 325mg Tab) 650 mg PO Q6 PRN PRN Reason: Fever >100.4 F Capsaicin (Trixaicin Cream) 1 applic TOP Q6 [facility] Last Admin: 08/06/18 11:24 Dose: 1 applic Dextrose (Dextrose 50% Inj) 0 ml IV STAT PRN; Protocol PRN Reason: Hypoglycemia Protocol Dextrose (Glutose 15) 0 gm PO ONCE PRN; Protocol PRN Reason: Hypoglycemia Protocol Gabapentin (Neurontin) 100 mg PO BID [facility] [place] Last Admin: 08/06/18 08:46 Dose: 100 mg Glucagon (Glucagen Diagnostic Kit) 0 mg IM STAT PRN; Protocol PRN Reason: Hypoglycemia Protocol Sodium Chloride (Sodium Chloride 0.9%) 1,000 mls @ 125 mls/hr IV .Q8H [facility] [place] Last Admin: 08/06/18 01:22 Dose: Not Given Vancomycin HCl 1 gm/ Sodium (Chloride) 250 mls @ 166.667 mls/hr IVPB Q12 [facility]; Protocol Last Admin: 08/06/18 08:44 Dose: 166.667 mls/hr Piperacillin Sod/Tazobactam (Sod 3.375 gm/ Sodium Chloride) 100 mls @ 100 mls/hr IVPB Q6 [facility]; Protocol Last Admin: 08/06/18 10:45 Dose: 100 mls/hr Insulin Detemir (Levemir) 5 units SC HS [facility] [place] Last Admin: 08/05/18 21:56 Dose: 5 units Insulin Human Lispro (Humalog) 0 units SC ACHS [facility]; Protocol Last Admin: 08/06/18 11:48 Dose: 10 units Ketorolac Tromethamine (Toradol) 15 mg IVP Q6 PRN PRN Reason: Pain, Mild (1-3) Ketorolac Tromethamine (Toradol) 30 mg IVP Q6 PRN PRN Reason: Pain, moderate (4-7) Last Admin: 08/06/18 11:21 Dose: 30 mg Lisinopril (Zestril) 10 mg PO DAILY [facility] Last Admin: 08/06/18 09:55 Dose: 10 mg Ondansetron HCl (Zofran Inj) 4 mg IVP Q6 PRN PRN Reason: Nausea/Vomiting Sitagliptin Phosphate (Januvia) 50 mg PO DAILY [facility] [place] Tramadol HCl (Ultram) 50 mg PO Q4 PRN PRN Reason: Pain, severe (8-10) - Labs Labs: 08/06/18 05:30 08/06/18 05:30 PT 10.8 Seconds (9.8-13.1) 08/05/18 06:00 INR 1.0 08/05/18 06:00 APTT 34.1 Seconds (25.6-37.1) 08/05/18 06:00 - Head Exam Head Exam: ATRAUMATIC - Eye Exam Eye Exam: EOMI, Normal appearance - ENT Exam ENT Exam: Mucous Membranes Moist, Normal Exam - Neck Exam Neck Exam: Normal Inspection - Respiratory Exam Respiratory Exam: Clear to Ausculation Bilateral - Cardiovascular Exam Cardiovascular Exam: REGULAR RHYTHM - GI/Abdominal Exam GI & Abdominal Exam: Soft, Normal Bowel Sounds Additional comments: abscess draining, not fully Assessment and Plan - Assessment and Plan (Free Text) Assessment: abdominal wall abscess, will go to or and drain Plan: as above
--- NOTE | 2018-08-06 13:16 | CP.PCM.PN ---
<Elisabet Goyal - Last Filed: 08/06/18 13:25> Subjective - Date & Time of Evaluation Date of Evaluation: 08/06/18 Time of Evaluation: 13:15 - Subjective Subjective: Patient seen and examined bedside. Continues to complain of pain at and around abdominal abscess. Denies fever, chills, nausea, vomiting, chest pain and SOB. Objective - Vital Signs/Intake and Output Vital Signs (last 24 hours): Temp Pulse Resp BP Pulse Ox 97.8 F 71 20 131/81 99 08/06/18 08:46 08/06/18 09:55 08/06/18 08:46 08/06/18 09:55 08/06/18 08:46 - Medications Medications: Current Medications Acetaminophen (Tylenol 325mg Tab) 650 mg PO Q6 PRN PRN Reason: Fever >100.4 F Capsaicin (Trixaicin Cream) 1 applic TOP Q6 [facility] Last Admin: 08/06/18 11:24 Dose: 1 applic Dextrose (Dextrose 50% Inj) 0 ml IV STAT PRN; Protocol PRN Reason: Hypoglycemia Protocol Dextrose (Glutose 15) 0 gm PO ONCE PRN; Protocol PRN Reason: Hypoglycemia Protocol Gabapentin (Neurontin) 100 mg PO BID [facility] Last Admin: 08/06/18 08:46 Dose: 100 mg Glucagon (Glucagen Diagnostic Kit) 0 mg IM STAT PRN; Protocol PRN Reason: Hypoglycemia Protocol Sodium Chloride (Sodium Chloride 0.9%) 1,000 mls @ 125 mls/hr IV .Q8H [facility] Last Admin: 08/06/18 01:22 Dose: Not Given Vancomycin HCl 1 gm/ Sodium (Chloride) 250 mls @ 166.667 mls/hr IVPB Q12 [facility]; Protocol Last Admin: 08/06/18 08:44 Dose: 166.667 mls/hr Piperacillin Sod/Tazobactam (Sod 3.375 gm/ Sodium Chloride) 100 mls @ 100 mls/hr IVPB Q6 [facility]; Protocol Last Admin: 08/06/18 10:45 Dose: 100 mls/hr Insulin Detemir (Levemir) 5 units SC HS [facility] Last Admin: 08/05/18 21:56 Dose: 5 units Insulin Human Lispro (Humalog) 0 units SC ACHS [facility]; Protocol Last Admin: 08/06/18 11:48 Dose: 10 units Ketorolac Tromethamine (Toradol) 15 mg IVP Q6 PRN PRN Reason: Pain, Mild (1-3) Ketorolac Tromethamine (Toradol) 30 mg IVP Q6 PRN PRN Reason: Pain, moderate (4-7) Last Admin: 08/06/18 11:21 Dose: 30 mg Lisinopril (Zestril) 10 mg PO DAILY [facility] Last Admin: 08/06/18 09:55 Dose: 10 mg Ondansetron HCl (Zofran Inj) 4 mg IVP Q6 PRN PRN Reason: Nausea/Vomiting Sitagliptin Phosphate (Januvia) 50 mg PO DAILY [facility] Tramadol HCl (Ultram) 50 mg PO Q4 PRN PRN Reason: Pain, severe (8-10) - Labs Labs: 08/06/18 05:30 08/06/18 05:30 PT 10.8 Seconds (9.8-13.1) 08/05/18 06:00 INR 1.0 08/05/18 06:00 APTT 34.1 Seconds (25.6-37.1) 08/05/18 06:00 - Constitutional Appears: No Acute Distress - Head Exam Head Exam: NORMAL INSPECTION - ENT Exam ENT Exam: Mucous Membranes Moist - Respiratory Exam Respiratory Exam: NORMAL BREATHING PATTERN. absent: Respiratory Distress - Cardiovascular Exam Cardiovascular Exam: REGULAR RHYTHM - GI/Abdominal Exam GI & Abdominal Exam: Soft Additional comments: Large 10x5cm area of cellultic lesion, induration 2x2cm, and erythema, extending from below umbilical area to left abdomen; Minimally draining clear fluid, very tender to palpation - Neurological Exam Neurological Exam: Alert, Awake, Oriented x3 - Psychiatric Exam Psychiatric exam: Normal Affect, Normal Mood - Skin Skin Exam: Dry, Intact, Normal Color, Warm Additional comments: abd cellulitis as above Assessment and Plan - Assessment and Plan (Free Text) Assessment: 48 y/o F with PMH of HTN, NIDDM-II, herpes zoster and cholecystectomy admitted to to [facility] for evaluation and treatment of left abdominal wall cellulitis and acute appendicitis. Plan: Abdominal wall cellulitis/Abscess - CT: Localized cellulitis is seen in the subcutaneous soft tissues of the left anterior pelvic wall - Vancomycin Q12H - Zosyn Q6H - As per surgery (Dr Jain 08/06): OR for I&D - Blood culture: no growth @ 24h Acute appendicitis - CT: Dilatation of the appendix suspicious for acute appendicitis - Vancomycin Q12H - Zosyn Q6H - NPO, IVF Left side flank pain, may be due to early stage of Herpes Zoster - C/w Gabapentin - Pain management - Treat if any sign of skin changes HTN - Chronic, controlled - Home medications Lisinop-HCTZ 20-12.5mg NIDDM-II - Chronic, uncontrolled - C/w Sliding scale/Hypoglycemic protocol - AccuChecks ACHS - Hold Metformin/Glimepirid and Januvia - NPO after lunch as per Dr Jain DVT PPX - SCD for now <Suzi Enrique - Last Filed: 08/06/18 17:06> Objective - Vital Signs/Intake and Output Vital Signs (last 24 hours): Temp Pulse Resp BP Pulse Ox 98.7 F 80 18 136/78 96 08/06/18 16:23 08/06/18 16:23 08/06/18 16:23 08/06/18 16:23 08/06/18 16:23 - Medications Medications: Current Medications Acetaminophen (Tylenol 325mg Tab) 650 mg PO Q6 PRN PRN Reason: Fever >100.4 F Capsaicin (Trixaicin Cream) 1 applic TOP Q6 [facility] Last Admin: 08/06/18 16:23 Dose: 1 applic Dextrose (Dextrose 50% Inj) 0 ml IV STAT PRN; Protocol PRN Reason: Hypoglycemia Protocol Dextrose (Glutose 15) 0 gm PO ONCE PRN; Protocol PRN Reason: Hypoglycemia Protocol Gabapentin (Neurontin) 100 mg PO BID [facility] Last Admin: 08/06/18 16:23 Dose: 100 mg Glucagon (Glucagen Diagnostic Kit) 0 mg IM STAT PRN; Protocol PRN Reason: Hypoglycemia Protocol Sodium Chloride (Sodium Chloride 0.9%) 1,000 mls @ 125 mls/hr IV .Q8H [facility] Last Admin: 08/06/18 10:45 Dose: 125 mls/hr Vancomycin HCl 1 gm/ Sodium (Chloride) 250 mls @ 166.667 mls/hr IVPB Q12 [facility]; Protocol Last Admin: 08/06/18 08:44 Dose: 166.667 mls/hr Piperacillin Sod/Tazobactam (Sod 3.375 gm/ Sodium Chloride) 100 mls @ 100 mls/hr IVPB Q6 [facility]; Protocol Last Admin: 08/06/18 16:22 Dose: 100 mls/hr Insulin Detemir (Levemir) 10 units SC HS [facility] Insulin Human Lispro (Humalog) 0 units SC ACHS [facility]; Protocol Last Admin: 08/06/18 16:21 Dose: 8 units Ketorolac Tromethamine (Toradol) 15 mg IVP Q6 PRN PRN Reason: Pain, Mild (1-3) Ketorolac Tromethamine (Toradol) 30 mg IVP Q6 PRN PRN Reason: Pain, moderate (4-7) Last Admin: 08/06/18 11:21 Dose: 30 mg Lisinopril (Zestril) 10 mg PO DAILY [facility] Last Admin: 08/06/18 09:55 Dose: 10 mg Ondansetron HCl (Zofran Inj) 4 mg IVP Q6 PRN PRN Reason: Nausea/Vomiting Sitagliptin Phosphate (Januvia) 50 mg PO DAILY [facility] Tramadol HCl (Ultram) 50 mg PO Q4 PRN PRN Reason: Pain, severe (8-10) Last Admin: 08/06/18 14:48 Dose: 50 mg - Labs Labs: 08/06/18 05:30 08/06/18 05:30 PT 10.8 Seconds (9.8-13.1) 08/05/18 06:00 INR 1.0 08/05/18 06:00 APTT 34.1 Seconds (25.6-37.1) 08/05/18 06:00 Attending/Attestation - Attestation I have personally seen and examined this patient.: Yes I have fully participated in the care of the patient.: Yes I have reviewed all pertinent clinical information, including history, physical exam and plan: Yes Notes (Text): Abdominal Wall Cellulitis with abscess Dilatation of Appendix , asymptomatic , unlikely acute Appendicitis Left abd wall pain , likely referred pain from Cellulitis unlikely Zoster DM type II with Hyperglycemia - cont IV Zosyn and Vanco - Surgery consulted- plan for Incision and drainage in the OR tomorrow by Dr Jain -increase Levemir to 10 units q hs, Accucheck w/ coverage with Lispro -Pain mgt - NPO from [place]
[2018-08-06] MEDS ORDERED: Insulin Lispro (humaLOG) 100 Units/ml Inj SC STA ×2 (21:43)
[2018-08-06] MEDS ORDERED: Insulin Detemir 100 Units/ml Inj SC SCH (22:00)
[2018-08-06 23:51] VITALS: O2SAT 98
[2018-08-07] MEDS: Sodium Chloride 0.9% 1,000 ML IV SCH ×2 (01:30→08:58)
--- NOTE | 2018-08-07 01:41 | CP.PCM.HP ---
<Terry Wong - Last Filed: 08/07/18 01:38> History of Present Illness - History of Present Illness History of Present Illness: 48 y/o F with PMH of HTN, NIDDM-II, herpes zoster and cholecystectomy admitted to to [facility] for evaluation and treatment of left abdominal wall cellulitis and acute appendicitis. Patient noticed a small pimple 1 week ago on her abdomen below umbilicus, which got progressively worse with swelling, erythema, pus and pain. Allg: NKDA MEDs: As per EMR PMHx: HTN, NIDDM-II and PSHx: cholecystectomy FHx: Denies SHx: No alcohol/smoking or drug use Present on Admission - Present on Admission Any Indicators Present on Admission: No Review of Systems - Constitutional Constitutional: absent: Anorexia, Chills, Fever - EENT Nose/Mouth/Throat: absent: Nasal Congestion, Neck Pain, Neck Mass - Respiratory Respiratory: absent: Cough, Dyspnea, Hemoptysis - Gastrointestinal Gastrointestinal: Abdominal Pain. absent: Hematemesis, Nausea, Vomiting - Genitourinary Genitourinary: absent: Dysuria, Flank Pain, Hematuria Past Patient History - Infectious Disease Hx of Infectious Diseases: None - Past Medical History & Family History Past Medical History?: Yes - Past Social History Smoking Status: Never Smoked - CARDIAC Hx Hypercholesterolemia: Yes Hx Hypertension: Yes - PULMONARY Hx Respiratory Disorders: No - NEUROLOGICAL Hx Neurological Disorder: No - HEENT Hx HEENT Problems: No - RENAL Hx Chronic Kidney Disease: No - ENDOCRINE/METABOLIC Hx Endocrine Disorders: Yes Hx Diabetes Mellitus Type 2: Yes - HEMATOLOGICAL/ONCOLOGICAL Hx Human Immunodeficiency Virus (HIV): No - INTEGUMENTARY Hx Dermatological Problems: No - MUSCULOSKELETAL/RHEUMATOLOGICAL Hx Musculoskeletal Disorders: No Hx Falls: No - GASTROINTESTINAL Hx Gastrointestinal Disorders: No - GENITOURINARY/GYNECOLOGICAL Hx Genitourinary Disorders: No - PSYCHIATRIC Hx Anxiety: Yes Hx Depression: Yes - SURGICAL HISTORY Hx Cholecystectomy: Yes - ANESTHESIA Hx Anesthesia: Yes Hx Anesthesia Reactions: No Meds Allergies/Adverse Reactions: Allergies Allergy/AdvReac Type Severity Reaction Status Date / Time No Known Allergies Allergy Verified 08/04/18 20:48 Physical Exam - Additional Findings Additional findings: - Constitutional Appears: No Acute Distress - Head Exam Head Exam: NORMAL INSPECTION - ENT Exam ENT Exam: Mucous Membranes Moist - Respiratory Exam Respiratory Exam: NORMAL BREATHING PATTERN. absent: Respiratory Distress - Cardiovascular Exam Cardiovascular Exam: REGULAR RHYTHM - GI/Abdominal Exam GI & Abdominal Exam: Soft Additional comments: Large 10x5cm area of cellultic lesion, induration 2x2cm, and erythema, extending from below umbilical area to left abdomen; Minimally draining clear fluid, very tender to palpation - Neurological Exam Neurological Exam: Alert, Awake, Oriented x3 - Psychiatric Exam Psychiatric exam: Normal Affect, Normal Mood - Skin Skin Exam: Dry, Intact, Normal Color, Warm Additional comments: abd cellulitis as above Results - Vital Signs Recent Vital Signs: Last Vital Signs Temp 98.3 F 08/06/18 23:50 Pulse 80 08/06/18 23:50 Resp 18 08/06/18 23:50 BP 122/74 08/06/18 23:50 Pulse Ox 98 08/06/18 23:50 - Labs Result Diagrams: 08/06/18 05:30 08/06/18 05:30 Labs: Laboratory Results - last 24 hr 08/06/18 08/06/18 08/06/18 05:30 05:30 05:34 WBC 7.4 RBC 3.53 L Hgb 12.0 Hct 34.8 MCV 98.6 MCH 34.1 H MCHC 34.6 RDW 13.6 Plt Count 142 MPV 9.5 Neut % (Auto) 56.9 Lymph % (Auto) 33.4 [place] % (Auto) 7.7 Eos % (Auto) 1.7 Baso % (Auto) 0.3 Neut # (Auto) 4.2 Lymph # (Auto) 2.5 [place] # (Auto) 0.6 Eos # (Auto) 0.1 Baso # (Auto) 0.0 Sodium 137 Potassium 4.2 Chloride 106 Carbon Dioxide 25 Anion Gap 10 BUN 12 Creatinine 0.3 L Est GFR ( Amer) > 60 Est GFR (Non-Af Amer) > 60 POC Glucose (mg/dL) 200 H Random Glucose 184 H Calcium 8.0 L 08/06/18 08/06/18 08/06/18 11:06 16:00 21:01 WBC RBC Hgb Hct MCV MCH MCHC RDW Plt Count MPV Neut % (Auto) Lymph % (Auto) [place] % (Auto) Eos % (Auto) Baso % (Auto) Neut # (Auto) Lymph # (Auto) [place] # (Auto) Eos # (Auto) Baso # (Auto) Sodium Potassium Chloride Carbon Dioxide Anion Gap BUN Creatinine Est GFR ( Amer) Est GFR (Non-Af Amer) POC Glucose (mg/dL) 367 H 322 H 312 H Random Glucose Calcium Assessment & Plan - Assessment and Plan (Free Text) Assessment: 48 y/o F with PMH of HTN, NIDDM-II, herpes zoster and cholecystectomy admitted to to [facility] for evaluation and treatment of left abdominal wall cellulitis and acute appendicitis. PLAN: Abdominal wall cellulitis/Abscess - CT: Localized cellulitis is seen in the subcutaneous soft tissues of the left anterior pelvic wall - Vancomycin Q12H and Zosyn Q6H - General Surgery on board, Dr Jain. - I&D procedure at OR later today. - NPO and IV fluids - No change in management, pt is optimized for surgical procedure tomorrow. Dialtion of Appedinx - CT: Dilatation of the appendix suspicious for acute appendicitis - Vancomycin Q12H and Zosyn Q6H - NPO, IVF - Asymptomatic, unlikely for acute appenditis. Left side flank pain, may be due to early stage of Herpes Zoster - C/w Gabapentin - Pain management - Treat if any sign of skin changes HTN - Chronic, controlled - Home medications Lisinop-HCTZ 20-12.5mg NIDDM-II - Chronic, uncontrolled - Increase Levemir to 10 units q hs, Accucheck w/ coverage with Lispro - AccuChecks ACHS - Hold Metformin/Glimepirid and Januvia - NPO after lunch as per Dr Jain DVT PPX - SCD for now - Date & Time Date: 08/05/18 Time: 01:51 <Kyle Rich - Last Filed: 08/07/18 05:51> Results - Vital Signs Recent Vital Signs: Last Vital Signs Temp 98.3 F 08/06/18 23:50 Pulse 80 08/06/18 23:50 Resp 18 08/06/18 23:50 BP 122/74 08/06/18 23:50 Pulse Ox 98 08/06/18 23:50 - Labs Result Diagrams: 08/06/18 05:30 08/06/18 05:30 Labs: Laboratory Results - last 24 hr 08/06/18 08/06/18 08/06/18 05:30 05:30 05:34 WBC 7.4 RBC 3.53 L Hgb 12.0 Hct 34.8 MCV 98.6 MCH 34.1 H MCHC 34.6 RDW 13.6 Plt Count 142 MPV 9.5 Neut % (Auto) 56.9 Lymph % (Auto) 33.4 [place] % (Auto) 7.7 Eos % (Auto) 1.7 Baso % (Auto) 0.3 Neut # (Auto) 4.2 Lymph # (Auto) 2.5 [place] # (Auto) 0.6 Eos # (Auto) 0.1 Baso # (Auto) 0.0 Sodium 137 Potassium 4.2 Chloride 106 Carbon Dioxide 25 Anion Gap 10 BUN 12 Creatinine 0.3 L Est GFR ( Amer) > 60 Est GFR (Non-Af Amer) > 60 POC Glucose (mg/dL) 200 H Random Glucose 184 H Calcium 8.0 L 08/06/18 08/06/18 08/06/18 11:06 16:00 21:01 WBC RBC Hgb Hct MCV MCH MCHC RDW Plt Count MPV Neut % (Auto) Lymph % (Auto) [place] % (Auto) Eos % (Auto) Baso % (Auto) Neut # (Auto) Lymph # (Auto) [place] # (Auto) Eos # (Auto) Baso # (Auto) Sodium Potassium Chloride Carbon Dioxide Anion Gap BUN Creatinine Est GFR ( Amer) Est GFR (Non-Af Amer) POC Glucose (mg/dL) 367 H 322 H 312 H Random Glucose Calcium Attending/Attestation - Attestation I have personally seen and examined this patient.: Yes I have fully participated in the care of the patient.: Yes I have reviewed all pertinent clinical information: Yes Notes (Text): Kyle Rich MD
[2018-08-07] MEDS: Piperacillin/Tazobact 3.375 GM in Sodium Chloride 0.9% 100 ML IVPB SCH ×2 (04:22→12:34)
[2018-08-07] MEDS ORDERED: Insulin Lispro (humaLOG) 100 Units/ml Inj SC STA (06:21)
[2018-08-07 06:30] LABS: BLOOD UREA NITROGEN 13 mg/dl (7-17); CALCIUM 8.2 mg/dL (8.4-10.2); GFR NON-AFRICAN AMERICAN > 60
[2018-08-07 06:36] LABS: BASO % 0.3 % (0.0-2.0); EOS # 0.1 K/uL (0.0-0.7); EOS % 2.2 % (0.0-4.0); HEMOGLOBIN 11.6 g/dL (12.0-16.0); LYMPH # 2.5 K/uL (1.0-4.3); LYMPH % 43.6 % (20.0-40.0); MEAN CELL VOLUME 98.3 fl (81.0-99.0); MEAN CORPUSCULAR HEMOGLOBIN 33.8 pg (27.0-31.0); MEAN CORPUSCULAR HGB CONC 34.4 g/dL (33.0-37.0); MEAN PLATELET VOLUME 9.3 fl (7.2-11.7); MONO # 0.4 K/uL (0.0-0.8); MONO % 7.6 % (0.0-10.0); NEUT # 2.6 K/uL (1.8-7.0); NEUT % 46.3 % (50.0-75.0); NRBC % 0.1 % (0.0-0.0); RBC 3.42 Mil/uL (3.80-5.20); RED CELL DISTRIBUTION WIDTH 13.3 % (11.5-14.5); WHITE BLOOD COUNT 5.7 K/uL (4.8-10.8)
[2018-08-07] MEDS: Insulin Lispro (humaLOG) 100 Units/ml Inj SC SCH ×2 (06:55→12:37)
[2018-08-07 08:18] VITALS: BP 130/79; PULSE 68; RESP 19; TEMP 98.1
--- NOTE | 2018-08-07 13:03 | CP.PCM.DIS ---
Provider - Provider Date of Admission: 08/04/18 23:32 Attending physician: Kyle Rich Primary care physician: Horacio Calderón Consults: 08/05/18 00:38 Surgery [General Surgery Consult] Stat Comment: Consulting Provider: Brown Jain Consulting Physician: Brown Jain Reason for Consult: abd pain Time Spent in preparation of Discharge (in minutes): 20 Hospital Course - Lab Results Lab Results: Micro Results 08/04/18 22:00 Blood-Venous Blood Culture - Preliminary NO GROWTH AFTER 48 HOURS 08/04/18 22:15 Blood-Venous Blood Culture - Preliminary NO GROWTH AFTER 48 HOURS 08/04/18 22:08 Urine,Clean Catch Urine Culture - Final Gram Positive Cocci Most Recent Lab Values WBC 5.7 K/uL (4.8-10.8) 08/07/18 06:00 RBC 3.42 Mil/uL (3.80-5.20) L 08/07/18 06:00 Hgb 11.6 g/dL (12.0-16.0) L 08/07/18 06:00 Hct 33.6 % (34.0-47.0) L 08/07/18 06:00 MCV 98.3 fl (81.0-99.0) 08/07/18 06:00 MCH 33.8 pg (27.0-31.0) H 08/07/18 06:00 MCHC 34.4 g/dL (33.0-37.0) 08/07/18 06:00 RDW 13.3 % (11.5-14.5) 08/07/18 06:00 Plt Count 147 K/uL (130-400) 08/07/18 06:00 MPV 9.3 fl (7.2-11.7) 08/07/18 06:00 Neut % (Auto) 46.3 % (50.0-75.0) L 08/07/18 06:00 Lymph % (Auto) 43.6 % (20.0-40.0) H 08/07/18 06:00 [place] % (Auto) 7.6 % (0.0-10.0) 08/07/18 06:00 Eos % (Auto) 2.2 % (0.0-4.0) 08/07/18 06:00 Baso % (Auto) 0.3 % (0.0-2.0) 08/07/18 06:00 Neut # (Auto) 2.6 K/uL (1.8-7.0) 08/07/18 06:00 Lymph # (Auto) 2.5 K/uL (1.0-4.3) 08/07/18 06:00 [place] # (Auto) 0.4 K/uL (0.0-0.8) 08/07/18 06:00 Eos # (Auto) 0.1 K/uL (0.0-0.7) 08/07/18 06:00 Baso # (Auto) 0.0 K/uL (0.0-0.2) 08/07/18 06:00 PT 10.8 Seconds (9.8-13.1) 08/05/18 06:00 INR 1.0 08/05/18 06:00 APTT 34.1 Seconds (25.6-37.1) 08/05/18 06:00 Sodium 135 mmol/l (132-148) 08/07/18 06:00 Potassium 3.8 MMOL/L (3.6-5.0) 08/07/18 06:00 Chloride 105 mmol/L (98-107) 08/07/18 06:00 Carbon Dioxide 24 mmol/L (22-30) 08/07/18 06:00 Anion Gap 10 (10-20) 08/07/18 06:00 BUN 13 mg/dl (7-17) 08/07/18 06:00 Creatinine 0.4 mg/dl (0.7-1.2) L 08/07/18 06:00 Est GFR ( Amer) > 60 08/07/18 06:00 Est GFR (Non-Af Amer) > 60 08/07/18 06:00 POC Glucose (mg/dL) 176 mg/dL (65-110) H 08/07/18 10:58 Random Glucose 228 mg/dL (65-105) H 08/07/18 06:00 Lactic Acid 1.4 mmol/L (0.7-2.1) 08/05/18 09:30 Calcium 8.2 mg/dL (8.4-10.2) L 08/07/18 06:00 Total Bilirubin 0.2 mg/dl (0.2-1.3) 08/05/18 08:00 AST 19 U/L (14-36) 08/05/18 08:00 ALT 39 U/L (9-52) 08/05/18 08:00 Alkaline Phosphatase 166 U/L (38-126) H D 08/05/18 08:00 Total Protein 6.4 G/DL (6.3-8.2) 08/05/18 08:00 Albumin 3.3 g/dL (3.5-5.0) L 08/05/18 08:00 Globulin 3.2 gm/dL (2.2-3.9) 08/05/18 08:00 Albumin/Globulin Ratio 1.0 (1.0-2.1) 08/05/18 08:00 Urine Color Yellow (YELLOW) 08/04/18 22:08 Urine Clarity Slighty-cloudy (Clear) 08/04/18 22:08 Urine pH 7.0 (5.0-8.0) 08/04/18 22:08 Ur Specific [place] 1.022 (1.003-1.030) 08/04/18 22:08 Urine Protein Negative mg/dL (NEGATIVE) 08/04/18 22:08 Urine Glucose (UA) >=500 mg/dL (NEGATIVE) 08/04/18 22:08 Urine Ketones 20 mg/dL (NEGATIVE) 08/04/18 22:08 Urine Blood Negative (NEGATIVE) 08/04/18 22:08 Urine Nitrate Negative (NEGATIVE) 08/04/18 22:08 Urine Bilirubin Negative (NEGATIVE) 08/04/18 22:08 Urine Urobilinogen 0.2-1.0 mg/dL (0.2-1.0) 08/04/18 22:08 Ur Leukocyte Esterase Trace Hien/uL (Negative) 08/04/18 22:08 Urine RBC (Auto) 2 /hpf (0-3) 08/04/18 22:08 Urine Microscopic WBC 1 /hpf (0-5) 08/04/18 22:08 Ur Squamous Epith Cells 5 /hpf (0-5) 08/04/18 22:08 Hyaline Casts 3-5 /hpf (0-2) H 08/04/18 22:08 - Hospital Course Hospital Course: 48 y/o F with PMH of HTN, NIDDM-II, herpes zoster and cholecystectomy admitted for evaluation of abdominal wall pain radiating to left flank with subjective fever with urine frequency, and burning with urination for 3 days. She had developed a lower abdominal skin lesion with redness, swelling, and watery white drainage that has become progressively worse within the week. Patient admitted to med/surg , started on Vanco and Zosyn IV , warm compresses and surgery consulted CT abdomen and pelvis showed dilated appendix with no signs of appendictis, localized cellulitis at anterior pelvic wall subcutaneous fat with no abscess. Blood cx reported with no growth and urine cx reported as positive for gram positive cocci less than 10 000 colonies She also was started on Capscaicine topical and gabapentin PO for possible neuropathic pain from her previous Zoster infection She was continued on IV antibiotics and showed clinical improvement .She remained afebrile with no WBC count . Lesion to lower abdomen showing no fluctuation some induration and minimal discharge Discussed with surgery and will discharge patient home on PO Keflex for 1 week after small incision to the lesion to help with drainage. All explained to patient and family and they agree with plan Advised to continue with warm compresses to the area upon discharge and follow up with Clinic Dx 1.Abdominal Wall Cellulitis with small abscess-- surgery consulted No need for I& D received Vanco and Zosyn IV will d/c on Po Keflex for 1 week Continue warm compresses Ultram PRN for pain 2.Appendicitis ruled out 3.DM type II with Hyperglycemia increased Januvia from 50 to 100 mg . Continue with Metformin Po anD glimepiride upon discharge 4. Hypertension Controlled on Home meds Discharge Exam - Head Exam Head Exam: ATRAUMATIC, NORMAL INSPECTION, NORMOCEPHALIC - Eye Exam Eye Exam: EOMI, Normal appearance, PERRL Pupil Exam: NORMAL ACCOMODATION - ENT Exam ENT Exam: Mucous Membranes Moist, Normal Exam - Neck Exam Neck exam: Full Rom, Normal Inspection - Respiratory Exam Respiratory Exam: Clear to PA & Lateral, NORMAL BREATHING PATTERN. absent: Rhonchi, Wheezes, Respiratory Distress - Cardiovascular Exam Cardiovascular Exam: REGULAR RHYTHM, RRR, +S1, +S2. absent: JVD - GI/Abdominal Exam GI & Abdominal Exam: Normal Bowel Sounds, Soft. absent: Distended, Guarding, Rebound, Tenderness - Rectal Exam Rectal Exam: Deferred - Extremities Exam Extremities exam: full ROM, normal capillary refill, pedal pulses present - Back Exam Back exam: NORMAL INSPECTION - Neurological Exam Neurological exam: Alert, CN II-XII Intact, Oriented x3, Reflexes Normal - Psychiatric Exam Psychiatric exam: Normal Affect, Normal Mood - Skin Skin Exam: Dry, Warm Additional comments: left lower abdomen small area of cellulitis 4x4 cm with central area of serous drainage with no fluctuation Discharge Plan - Discharge Medications Prescriptions: Cephalexin [Keflex] 500 mg PO BID #14 capsule SITagliptin [Januvia] 100 mg PO DAILY #30 tab traMADol [Ultram] 50 mg PO Q6 PRN #10 tab PRN Reason: Pain, Severe (8-10) - Follow Up Plan Condition: STABLE Disposition: HOME/ ROUTINE Patient education suggested?: Yes Instructions: Cellulitis (DC) Additional Instructions: follow up at [facility] Referrals: at [place] [Outside]
--- NOTE | 2018-08-07 14:00 | CP.PCM.PN ---
Subjective - Date & Time of Evaluation Date of Evaluation: 08/07/18 Time of Evaluation: 10:55 - Subjective Subjective: Patient was seen and examined at the bedside. States that she started to drain some minimal fluid from the site of the cellulitis, but states that feels better. Objective - Vital Signs/Intake and Output Vital Signs (last 24 hours): Temp Pulse Resp BP Pulse Ox 98.1 F 68 19 130/79 98 08/07/18 08:18 08/07/18 08:58 08/07/18 08:18 08/07/18 08:58 08/07/18 08:18 - Medications Medications: Current Medications Acetaminophen (Tylenol 325mg Tab) 650 mg PO Q6 PRN PRN Reason: Fever >100.4 F Capsaicin (Trixaicin Cream) 1 applic TOP Q6 [facility] Last Admin: 08/07/18 09:03 Dose: 1 applic Dextrose (Dextrose 50% Inj) 0 ml IV STAT PRN; Protocol PRN Reason: Hypoglycemia Protocol Dextrose (Glutose 15) 0 gm PO ONCE PRN; Protocol PRN Reason: Hypoglycemia Protocol Gabapentin (Neurontin) 100 mg PO BID [facility] Last Admin: 08/07/18 08:48 Dose: Not Given Glucagon (Glucagen Diagnostic Kit) 0 mg IM STAT PRN; Protocol PRN Reason: Hypoglycemia Protocol Sodium Chloride (Sodium Chloride 0.9%) 1,000 mls @ 125 mls/hr IV .Q8H [facility] Last Admin: 08/07/18 08:58 Dose: Not Given Vancomycin HCl 1 gm/ Sodium (Chloride) 250 mls @ 166.667 mls/hr IVPB Q12 [facility]; Protocol Last Admin: 08/07/18 08:52 Dose: 166.667 mls/hr Piperacillin Sod/Tazobactam (Sod 3.375 gm/ Sodium Chloride) 100 mls @ 100 mls/hr IVPB Q6 [facility]; Protocol Last Admin: 08/07/18 12:34 Dose: 100 mls/hr Insulin Detemir (Levemir) 10 units SC HS [facility] Last Admin: 08/06/18 22:03 Dose: 10 units Insulin Human Lispro (Humalog) 0 units SC ACHS [facility]; Protocol Last Admin: 08/07/18 12:37 Dose: 2 units Ketorolac Tromethamine (Toradol) 15 mg IVP Q6 PRN PRN Reason: Pain, Mild (1-3) Ketorolac Tromethamine (Toradol) 30 mg IVP Q6 PRN PRN Reason: Pain, moderate (4-7) Last Admin: 08/07/18 13:52 Dose: 30 mg Lisinopril (Zestril) 10 mg PO DAILY [facility] Last Admin: 08/07/18 08:58 Dose: 10 mg Ondansetron HCl (Zofran Inj) 4 mg IVP Q6 PRN PRN Reason: Nausea/Vomiting Sitagliptin Phosphate (Januvia) 100 mg PO DAILY [facility] Last Admin: 08/07/18 12:37 Dose: 100 mg Tramadol HCl (Ultram) 50 mg PO Q4 PRN PRN Reason: Pain, severe (8-10) Last Admin: 08/06/18 14:48 Dose: 50 mg - Labs Labs: 08/07/18 06:00 08/07/18 06:00 PT 10.8 Seconds (9.8-13.1) 08/05/18 06:00 INR 1.0 08/05/18 06:00 APTT 34.1 Seconds (25.6-37.1) 08/05/18 06:00 - Constitutional Appears: Well, Non-toxic, No Acute Distress - Head Exam Head Exam: ATRAUMATIC, NORMAL INSPECTION, NORMOCEPHALIC - Eye Exam Eye Exam: EOMI, Normal appearance, PERRL Pupil Exam: NORMAL ACCOMODATION, PERRL - ENT Exam ENT Exam: Mucous Membranes Moist, Normal Exam - Neck Exam Neck Exam: Full ROM, Normal Inspection - Respiratory Exam Respiratory Exam: Clear to Ausculation Bilateral, NORMAL BREATHING PATTERN - Cardiovascular Exam Cardiovascular Exam: REGULAR RHYTHM, +S1, +S2 - GI/Abdominal Exam GI & Abdominal Exam: Soft, Normal Bowel Sounds Additional comments: mildly tender at the area of the erythema to the lower abdomen, ND, BS+, no rebound, no guarding, area of erythema to the lower abdomen, very minimal serous drainage - Rectal Exam Rectal Exam: Deferred - Extremities Exam Extremities Exam: Full ROM, Normal Inspection - Back Exam Back Exam: NORMAL INSPECTION - Neurological Exam Neurological Exam: Alert, Awake, CN II-XII Intact, Oriented x3 - Psychiatric Exam Psychiatric exam: Normal Affect, Normal Mood - Skin Skin Exam: Dry, Intact, Normal Color, Warm Assessment and Plan - Assessment and Plan (Free Text) Assessment: 48 y.o. female with cellulitis of the lower abdominal wall Plan: - Used 11 blade scalpel knife and opened up the area of drainage by 5 mm, no pus was expressed - Continue antibiotics - No further general surgery intervention at present time - Patient is clear for discharge from the general surgery stand point
== END 2018-08-07 14:40 | disposition home or self-care (01) | DRG 383 ==
LOC: H.ER 20:41 → H.ERHOLD 23:32 → H.MEDSURG1 08-05 02:05
PROVIDERS: ADMIT Internal Medicine; ATTEND Internal Medicine
DX: L03.311 Cellulitis of abdominal wall (principal); E11.65 Type 2 diabetes mellitus with hyperglycemia; I10 Essential (primary) hypertension; L02.211 Cutaneous abscess of abdominal wall; E78.00 Pure hypercholesterolemia, unspecified; F41.9 Anxiety disorder, unspecified; F32.9 Major depressive disorder, single episode, unspecified; E78.5 Hyperlipidemia, unspecified; K38.9 Disease of appendix, unspecified; L29.9 Pruritus, unspecified; Z79.84 Long term (current) use of oral hypoglycemic drugs